=== PATIENT | female | born 1930 | race Caucasian/White ===

== ENCOUNTER 2019-03-26 19:56 | Inpatient (IN) ==
[~2019-03-26 19:56] MED LIST: AMIODARONE HCL INJ 50 MG/ML 3 ML VIAL IV ONE
[2019-03-26] MEDS ORDERED: HEPARIN (PORCINE) 1000 UNIT/ML 10 ML (CATH LAB USE ONLY) ONE (20:02)
[2019-03-26] MEDS ORDERED: NiCARDipine HCL INJ 2.5 MG/ML 10 ML AMP ONE (20:02)
[2019-03-26] MEDS ORDERED: NITROGLYCERIN SL 0.4 MG/TAB TAB ONE (20:03)
[2019-03-26] MEDS ORDERED: fentaNYL citrate 100 MCG/2 ML VIAL ONE (20:03)
[2019-03-26] MEDS ORDERED: MIDAZOLAM HCL 1 MG/ML 2ML VIAL ONE (20:03)
[2019-03-26] MEDS ORDERED: NITROGLYCERIN/D5W 100MCG/ML 20ML SYR ONE (20:03)
[2019-03-26] MEDS ORDERED: ONDANSETRON INJ 2 MG/ML 2 ML VIAL ONE (20:03)
--- NOTE | 2019-03-26 20:11 | XRay Report ---
XR chest 1V portable CLINICAL HISTORY: Atypical chest pain COMPARISON STUDY: No previous studies for comparison. FINDINGS: There is borderline elevation left hemidiaphragm. The heart is at the upper limits of cody l in size. There is no overt failure. There is no lobar consolidation. There are no pleural effusions . There is minor interstitial thickening likely chronic.[ IMPRESSION: No active disease in the chest. Electronically signed by: Zeeshan Cano M.D. 03/26/2019 8:10 PM
[2019-03-26] MEDS ORDERED: METOCLOPRAMIDE HCL INJ 5 MG/ML 2 ML VIAL ONE (20:25)
[2019-03-26 20:26] LABS: iSTAT Creatinine 0.7 mg/dl (0.6-1.3); iSTAT Ionized Calcium 1.19 mmol/l (1.12-1.32); iSTAT Potassium 3.6 mEq/L (3.3-5.0)
[2019-03-26 20:30] LABS: Basophils # (auto) 0.05 K/uL (0-0.2); Basophils % (auto) 0.5 %; Eosinophils # (auto) 0.36 K/uL (0-0.5); Eosinophils % (auto) 3.5 %; Hematocrit (blood only) 49.2 % (37-47); Hemoglobin 16.4 g/dL (12.0-16.0); Immature Granulocytes # (auto) 0.02 K/uL (0.00-0.02); Immature Granulocytes % (auto) 0.2 %; Lymphocytes # (auto) 1.73 K/uL (1.2-3.4); Lymphocytes % (auto) 16.7 %; Mean Corpuscular Hemoglobin 29.9 pg (25-34); Mean Corpuscular Hgb Conc 33.3 g/dL (32-36); Mean Corpuscular Volume 89.6 fL (80-100); Mean Platelet Volume 11.3 fL (7.4-10.4); Monocytes # (auto) 0.58 K/uL (0.11-0.59); Monocytes % (auto) 5.6 %; Neutrophils # (auto) 7.65 K/uL (1.4-6.5); Neutrophils % (auto) 73.5 %; Platelet Count 269 K/uL (130-400); RDW Coefficient of Variation 13.1 % (11.5-14.5); RDW Standard Deviation 43.1 fL (36.4-46.3); Red Blood Count 5.49 M/uL (4.2-5.4); White Blood Count 10.39 K/uL (4.8-10.8)
[2019-03-26] MEDS ORDERED: ATROPINE SULFATE 0.1 MG/ML 10ML SYR IV ONE ×2 (20:41→20:45)
[2019-03-26 20:43] LABS: Partial Thromboplastin Ratio 0.9; Partial Thromboplastin Time 24.6 Seconds (21.0-31.0); Prothrombin Time 10.3 Seconds (9.0-12.0)
[2019-03-26] MEDS ORDERED: NOREPINEPHRINE BITARTRATE 1 MG/ML 4 ML VIAL (CATH LAB USE ONLY) ONE (20:45)
[2019-03-26] MEDS ORDERED: AMIODARONE 360MG / 200ML D5W (CATH LAB USE ONLY) ONE (20:52)
[2019-03-26 20:53] LABS: Alanine Aminotransferase 16 U/L (12-78); Albumin Level 4.3 gm/dl (3.4-5.0); Aspartate Aminotransferase 13 U/L (15-37); BUN Creatinine Ratio 23.3 (10-20); Blood Urea Nitrogen 18 mg/dl (7-18); Calcium 9.5 mg/dl (8.5-10.1); Carbon Dioxide 28 mmol/L (21-32); Chloride 107 mmol/L (98-107); Est GFR (African American) 80.5; Est GFR (Non-African American) 69.4; Glucose 176 mg/dl (70-99); Lipase 74 U/L (73-393); Magnesium 2.1 mg/dl (1.8-2.4); Potassium 3.6 mmol/L (3.5-5.1); Sodium 141 mmol/L (136-145)
[2019-03-26 21:04] LABS: Albumin Globulin Ratio 1.2 (0.9-2); Alkaline Phosphatase 73 U/L (45-117); Bilirubin,Total 0.5 mg/dl (0.2-1); Creatine Kinase 78 U/L (26-192); Creatine Kinase MB 1.9 ng/ml (0.5-3.6); Globulin 3.6 gm/dl (2.5-4.0); Thyroid Stimulating Hormone 0.009 uIu/ml (0.300-4.500); Total Protein 7.9 gm/dl (6.4-8.2); Troponin I < 0.015 ng/ml (0-0.045)
[2019-03-26] MEDS ORDERED: CLOPIDOGREL BISULFATE 300 MG TAB ONE (21:10)
[2019-03-26 21:16] LABS: T4 Free Thyroxine 1.39 ng/dl (0.8-1.6)
--- NOTE | 2019-03-26 21:17 | Post Anesthesia Assessment ---
Date of Service March 26, 2019 Post Sedation Assessment Vital Signs Temp Pulse Resp BP Pulse Ox 03/26/19 20:05 97.5 F L 74 20 131/90 94 03/26/19 20:01 94 Recovery Score Activity: Moves 4 extremities Respiration: Deep Breath/Cough Circulation: +/-20% PreAnes Value Consciousness: Fully Awake Oxygen Saturation: O2 needed for >90% Discharge Sedation Level of Care: Fast Track Phase II Post Sedation Plan On clinical assessment, the patient appears to have tolerated the sedation without complications. Patient is recovering as anticipated. Patient will continue to be monitored by nursing and may be discharged when sedation discharge criteria are met per below protocol. Upon Completions of procedure up to 15 minutes continue every 5 minute vital signs and the P.A.R. score; then discharge to a Phase I or Fast Track to Phase II per the following guidelines: * Discharge Patient to appropriate Phase II area if PAR is 8 or greater or return to pre- procedure baseline. The post - procedure orders will be as directed. * If PAR score is less than 8 or not return to pre-procedure baseline then patient will follow Phase I monitoring till PAR is reached for Phase II. The Phase I may be done in procedure room or may call to secure a Phase I area. * If naloxone or flumazenil are used for reversal, hold in Phase I for continued monitoring from when last reversal dose was given for a minimum of 60 minutes or longer pending the nurse and/or physician discretion of patient condition before discharge to Phase II. Please call the Sedation Physician to re-evaluate and complete post-note for discharge to Phase II area. Do NOT discharge from procedure sedation or Phase 1 until post- sedation evaluation note is complete by procedure /sedation MD Sedation Discharge Instructions to be given to the patient at discharge to home.
--- NOTE | 2019-03-26 21:17 | Pre Anesthesia Assessment ---
Date of Service March 26, 2019 Pre Sedation Assessment Vital Signs Temp Pulse Resp BP Pulse Ox 03/26/19 20:05 97.5 F L 74 20 131/90 94 03/26/19 20:01 94 Cardiovascular RRR, no murmur, no edema Respiratory normal respiratory effort, lungs clear to auscultation Pre-Sedation Airway Assessment Smoking Status: Current some day smoker Hx Sleep Apnea: No Hx Difficult Intubation: No Short, Thick Neck: No Thyromental Distance: > or= 3.5 Finger Breadths Oral Cavity: + WNL Mallampati Class: III ASA: ASA4 Procedure Planning Contraindications for Sedation: none Current Medications Reviewed: Yes Notes The planned sedation has been discussed with the patient. Informed Consent was obtained. I have identified the patient, determined the appropriateness of sedation and have assessed the patient immediately prior to the procedure. All medicine(s) and interventions are by my order.
[2019-03-26] MEDS ORDERED: ICU PROTOCOL FOR HYPERGLYCEMIA PRN (21:22)
[2019-03-26] MEDS ORDERED: ACETAMINOPHEN 325 MG TAB PO PRN (21:25)
[2019-03-26] MEDS ORDERED: NITROGLYCERIN SL 0.4 MG/TAB TAB SL PRN (21:25)
[2019-03-26] MEDS ORDERED: ONDANSETRON HCL 8 MG in DEXTROSE 5% 50 ML IV PRN (21:25)
[2019-03-26] MEDS ORDERED: SODIUM CHLORIDE 0.9% 1000ML 1,000 ML IV SCH (21:30)
[2019-03-26] MEDS ORDERED: AMIODARONE / D5W 360 MG/200 ML BAG IV STA (21:41)
[2019-03-26] MEDS ORDERED: NOREPINEPHRINE BIT INJ 8 MG in DEXTROSE 5% 500 ML IV PRN (21:41)
--- NOTE | 2019-03-26 21:51 | Cardiology Consultation ---
Date of Consultation March 26, 2019 Assessment & Plan (1) STEMI (ST elevation myocardial infarction): Presentation consistent with lateral STEMI and recommend proceeding with emergent cardiac catheterization and likely primary PCI. No apparent contraindications to procedure. Discussed risks, benefits, alternatives of procedure with patient and they are willing to proceed. Further recommendations pending findings of coronary angiography. History of Present Illness Attending Physician: Reginald Jennings MD History of Present Illness 88-year-old woman here with acute chest pain and ECG concerning for acute OK. Patient seen emergently in the ED after heart alert activated in route by EMS. No prior cardiac history. Cardiac risk factors include hypertension, ongoing tobacco use. Other medical issues include dementia, frailty, unintentional weight loss. Patient is a difficult historian but reports right-sided chest discomfort beginning this evening. Associated with nausea and vomiting. Denies similar symptoms in the past. Hemodynamically stable on arrival. EKG showed lateral ST elevations with anterior ST depressions. Allergies Allergy/AdvReac Type Severity Reaction Status Date / Time NSAIDS (Non-Steroidal Allergy CROHNS DX Unverified 03/26/19 21:47 Anti-Inflamma Home Medications Home Medications Medication Instructions Recorded Confirmed Type Mesalamine (Asacol *) 400 mg PO TID #0 03/07/09 History Azathioprine (Imuran) 50 mg PO TID #0 tab 10/28/12 History Ergocalciferol (Vitamin D Cap) 50,000 inter.unit PO WK #0 cap 10/28/12 History NICOTINE (NICOTROL INHALER) 10 mg INHALATION DAILY/UD #0 10/28/12 History ASPIRIN (ASPIR-81) 81 mg PO DAILY #0 12/14/12 History FELODIPINE (PLENDIL ER) 2.5 mg PO DAILY #0 tab 12/14/12 History FLUTICASONE PROPIONATE (FLONASE 2 spry [place] DAILY #0 btl 12/14/12 History NASAL SPRAY) MULTIPLE MINERALS W/ VITAMINS 1 cap PO DAILY #0 12/14/12 History (CITRACAL PLUS) OLOPATADINE HYDROCHLORIDE (PATADAY) 1 drp OPB DAILY PRN #0 12/14/12 History OMEPRAZOLE (PRILOSEC) 20 mg PO DAILY #0 cap 12/14/12 History OXYBUTYNIN CHLORIDE (OXYBUTYNIN 15 mg PO DAILY #0 12/14/12 History CHLORIDE ER) VIT W/ FERROUS FUMARA 1 tab PO DAILY #0 12/14/12 History () Patient History Social History Preferred Language: Mexican Feels Safe at Home: Yes Smoking Status: Current some day smoker Review of Systems Review of Systems: All systems reviewed & are unremarkable except as noted in HPI & below Physical Exam Physical Exam: General: Comfortable, thin, frail, no acute distress HEENT: Sclerae anicteric, mucous membranes moist Lungs: Clear to auscultation bilaterally Cardiac: Regular rate and rhythm, no murmurs. Abdomen: Soft, nontender, nondistended, positive bowel sounds. Extremities: Warm, well perfused, no edema. 2+ radial pulses Skin: No rashes or lesions. Neuro: Nonfocal Psych: Alert and oriented to person, place Results & Data Vital Signs (Past 12 Hours) Vital Signs Temp Pulse Resp BP Pulse Ox 03/26/19 20:05 97.5 F L 74 20 131/90 94 03/26/19 20:01 94 PG Care Time/CCT Total # of Minutes Spent Total Time Spent with Patient: Total time spent is greater than 50% in coordination of care (as documented) at patient's floor/unit and/or counseling patient:
--- NOTE | 2019-03-26 21:52 | History & Physical Report ---
Date of Service March 26, 2019 Assessment & Plan (1) STEMI (ST elevation myocardial infarction): No prior h/o heart disease. Taken to cath and received 2 HONEY. Currently in ICU on amio after VT requiring shocks during catheterization. Also requiring norepi with some intermittent hypotension. Loaded with Plavix and ordered to receive Lipitor, ASA 81, Plavix 75 daily. Cardiology consulted. Current management per [employer]. (2) Senile dementia: Recently administered shocks and has had a very eventful night. She is oriented but having some trouble remebering details like why she came in. Expect this to improve with time away from the event. Holding Razadyne until medication list can be confirmed. (3) Tobacco use disorder: Pt denies smoking. (4) Crohn disease: Per records she is not on medication for this, however, will need to confirm in am when able to get ahold of family. (5) DVT prophylaxis: SCDs Full Code Dispo-pending recovery, currently in ICU as she is needing pressor support. Janice Cook DO [facility] Hospitalist History of Present Illness Chief Complaint: STEMI Primary Care Provider: NO PCP The patient is an 88-year-old female here with acute chest pain and evidence of acute MO on EKG. A heart alert was activated and she was taken to cath where she was found to have an occluded mid circumflex and received 2 stents. She b ecame intermittently hypotensive and is now on norepinephrine and in the ICU for monitoring. During catheterization she also revealed went into unstable V. tach and required 2 shocks to return to sinus rhythm. She was loaded with Plavix and placed in the ICU for recovery and further monitoring. She has no prior history of cardiac disease per records. Cardiac risk factors include hypertension and tobacco use. She is unable to give me a history of what happened this evening and is having difficulty with short term memory. She is oriented that she is in the hospital, however, and knows her PCP well. She denies use of a ncotrol inhaler, which was on her medication list, however, not on her recent outpatient list. There is concern for two charts being made on her and I am unable to veri fy her outpatient medications either with her or her family as she has no listed contacts. There is a recent office note, however, that lists her active medications. Celexa is being held as this was a new medication for her per the notes, which she may not be taking regularly. She is denying chest pain, shortness of breath or other symptoms at this time. Allergies Allergy/AdvReac Type Severity Reaction Status Date / Time NSAIDS (Non-Steroidal Allergy CROHNS DX Unverified 03/26/19 21:47 Anti-Inflamma Home Medications Home Medications Medication Instructions Recorded Confirmed Type Ergocalciferol (Vitamin D Cap) 50,000 inter.unit PO WK #0 cap 10/28/12 History cholecalciferol (vitamin D3) 2,000 unit PO DAILY 03/26/19 03/26/19 History citalopram 10 mg PO DAILY 03/26/19 03/26/19 History galantamine 16 mg PO Q24H 03/26/19 03/26/19 History Past Med/Surg History Medical History Chronic rhinitis Crohn disease Generalized anxiety disorder Lumbar spinal stenosis MGUS (monoclonal gammopathy of unknown significance) Osteoporosis Patient unable to provide medical history 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, bilateral Tobacco use disorder Surgical History (Updated 03/26/19 @ 22:55 by Janice Cook DO) S/P laparoscopic cholecystectomy 10/2012 Family History Other Family history non-contributory Social History Preferred Language: Cambodian Feels Safe at Home: Yes Smoking Status: Current some day smoker Review of Systems Review of Systems: Unobtainable due to cognitive status Physical Exam Physical Exam: CONSTITUTIONAL: WNWD, vitals as above, generally well- appearing EYES: pupils are equal bilaterally, normal conjunctivae, no scleral icterus ENT: external ear and nose normal, MMM RESPIRATORY: clear to auscultation bilaterally, no crackles, rales or wheezes, normal respiratory effort CARDIOVASCULAR: regular rate and rhythm, S1 and 2 heard without murmurs, gallops or rubs, no JVD, no peripheral edema GASTROINTESTINAL: normal bowel sounds, soft, nontender, nondistended MUSCULOSKELETAL: strength 5/5 throughout, head is normocephalic and atraumatic SKIN: warm and dry NEUROLOGIC: CN 2-12 grossly intact, no sensory deficit, normal cognition, normal speech,difficulty with short-term memory of recent events. Cannot recall medications she is taking. Results & Data Vital Signs (Past 12 Hours) Vital Signs Temp Pulse Resp BP Pulse Ox 03/26/19 20:05 36.4 C L 74 20 131/90 94 03/26/19 20:01 94 Laboratory Results Short CBC 03/26/19 Range/Units 19:45 WBC 10.39 (4.8-10.8) K/uL Hgb 16.4 H (12.0-16.0) g/dL Hct 49.2 H (37-47) % Plt Count 269 (130-400) K/uL BMP 03/26/19 19:45 Sodium 141 Potassium 3.6 Chloride 107 Carbon Dioxide 28 BUN 18 Creatinine 0.77 Glucose 176 H Calcium 9.5 Cardiac Enzymes 03/26/19 Range/Units 19:45 Total Creatine Kinase 78 (26-192) U/L CK-MB (CK-2) 1.9 (0.5-3.6) ng/ml Troponin I < 0.015 (0-0.045) ng/ml Liver Function 03/26/19 Range/Units 19:45 Total Bilirubin 0.5 (0.2-1) mg/dl AST 13 L (15-37) U/L ALT 16 (12-78) U/L Alkaline Phosphatase 73 (45-117) U/L Albumin 4.3 (3.4-5.0) gm/dl Diagnostic Findings XR chest 1V portable CLINICAL HISTORY: Atypical chest pain COMPARISON STUDY: No previous studies for comparison. FINDINGS: There is borderline elevation left hemidiaphragm. The heart is at the upper limits of normal in size. There is no overt failure. There is no lobar consolidation. There are no pleural effusions. There is minor interstitial thickening likely chronic.[ IMPRESSION: No active disease in the chest. Code Status & VTE Plan VTE Prophylaxis Plan VTE Prophylaxis will be ordered: Yes
--- NOTE | 2019-03-26 22:04 | Cardiac Catheterization ---
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 Cardiac Status Clinical evaluation leading to the procedure CAD Presenation: STEMI Anginal Classification: CCS IV Heart Failure: No Cardiogenic Shock within 24 Hours: No Cardiac Arrest within 24 Hours: No Imaging Studies Past 6 Months: No Stress Studies Past 6 Months: No Diagnostic Physicians Name: Reginald Jennings MD Closure Device Percutaneous Entry Location: Radial Closure Device: Radial Band Recommendations: PCI without planned CABG PCI Indication: Immediate PCI for STEMI First Noted: First EKG Lesion Segment Name: mid circumflex Culprit Artery: Yes Stenosis Prior to Rx (%): 100 Chronic Total Occlusion: No IVUS: No FFR: No Pre-Procedure MARK Flow: 0 Previously Treated Lesion: No Lesion Complexity: Non-High/Non-C Lesion Length (mm): 22 Thrombus Present: Yes Bifurcation Lesion: Yes Guidewire Across Lesion: Stenosis Post-Procedure (%): 0 Post-Procedure MARK Flow: 3 Devices(s) Deployed: Yes Yes Intraprocedure Events Significant Disection: No Perforation: No Cardiac Cath Procedure Full Procedure Date March 26, 2019 Pre-Procedure Diagnosis Pre-Procedure Diagnosis: STEMI AUC Score AUC Score: 9 Post-Procedure Diagnosis Post-Procedure Diagnosis: Severe CAD, Successful PCI and Normal Intracardiac Pressures Procedure(s) Performed Procedure(s) Performed: Coronary Angiography, Left Heart Cath, Drug Eluting Stent and Defibrillation Efficiency Analyst Reginald Jennings MD Plant Mechanic(s) Wood Estimated Blood Loss Estimated Blood Loss: 10 Medication(s) Medication(s): Atropine, Clopidogrel, Fentanyl, Heparin, Lidocaine 1%, Nicardipine, Nitroglycerin, Norepinephrine and Versed Medication(s): amiodarone Summary of Findings Indication: STEMI/Heart Alert Access: 6 Fr right radial artery Catheters: [place], EBU 3.5 guide, pigtail Findings: LM -large caliber, mildly calcified, luminal irregularities LAD -medium caliber vessel, mildly calcified proximally, 20 to 30% mid segment disease, distal luminal irregularities as wraps around apex. Medium first diagonal with 40 to 50% ostial disease Circumflex -large caliber vessel, 100% acute mid segment occlusion. RCA -medium caliber, dominant, mildly calcified, 20 to 30% proximal and mid segment disease, distal luminal irregularities. LVEDP -10 -- PCI -- Antithrombotic therapy: Heparin, clopidogrel Procedure: Left main cannulated with EBU 3.5 guide Curriculum Writer 50 wire passed across lesion into first OM Whisper wire passed across lesion into terminal PLB Mid RCA lesion predilated with 2.5 compliant balloon With reperfusion at bradycardia requiring atropine Later developed unstable VT requiring defibrillation x2 and initiation of amiodarone Intermittently hypotensive requiring IV fluid bolus and low-dose norepinephrine Dilated lesion stented with 2.75 x 22 mm [place] extending into distal segment Second drug-eluting stent (3.0 x 15 mm Nicolas) placed more proximally overlapping with proximal aspect of initial stent Stent post-dilated with stent balloon IC vasodilators administered for spasm Post procedure MARK 3 flow, stent well expanded with minimal residual stenosis and no apparent cardiac complications. Very distal OM1 appeared occluded secondary to thrombus. Arterial Closure: TR band Summary: 1. Lateral STEMI/acute 100% mid circumflex occlusion 2. Mild multi-vessel non-culprit coronary artery disease 3. Normal intracardiac filling pressure 4. Unstable VT requiring defibrillation x 2 and amiodarone 5. Cardiogenic shock requiring IV fluids, norepinephrine, atropine. 6. Successful PCI of mid to distal circumflex with 2 overlapping drug-eluting stents (3.0 x 15, 2.75 x 22 mm [place]). Recommendations: Admit to ICU for continued monitoring Loaded with clopidogrel 600 mg in cath Continue dual-antiplatelet therapy for at least 1 year. Trend troponins until peak, Check Echo Wean off norepinephrine as able, start beta-kathy. Continue amiodarone overnight High-dose statin Consult cardiac Rehab Hemodynamics Rest Ao:: 132/70/130 Final Ao: 81/47/60 LV: 76/10 Recommendations Recommendations: PCI without planned CABG Specimens Specimens: None Radiation Exposure (mGy) 900 Contrast (mls) 80 Fluids (cc crystalloids) Fluids (cc crystalloids): 550 Drains Drains: none Anesthesia moderate Procedural Complication(s) None Disposition ICU I attest to the content of the Intraoperative Record and any orders documented therein. Any exceptions are noted below. PG Care Time/CCT Total # of Minutes Spent Total Time Spent with Patient: Total time spent is greater than 50% in coordination of care (as documented) at patient's floor/unit and/or counseling patient:
--- NOTE | 2019-03-26 23:15 | Critical Care Consultation ---
Date of Consultation March 26, 2019 Assessment & Plan (1) STEMI (ST elevation myocardial infarction): Reason Critically Ill: 88-year-old female appearance looks to the ICU following heart catheterization for ST elevation myocardial infarction with HONEY x2 placed to the mid circumflex Neuro - Senile dementiapatient reportedly is mildly confused at baseline, lives at home with who is also demented. Son is POA currently at home with the patient's . -We will consult social work and PT OT Cardiac - STEMIpatient had ST elevation in lateral leads, initial troponin negative -Patient now status post heart catheterization with successful placement of HONEY x2 to the mid circumflex artery -Patient had episode of V. tach and bradycardia during heart cath and received defibrillation x2 and atropine, was also placed on levo fed drip but is now weaned off -Given 600 mg clopidogrel bolus post-cath -We will trend troponins for peak -Follow-up cardiac echo -Follow-up LFTs, TSH, hemoglobin A1c -Patient started on ASA, Plavix, atorvastatin -Continuous monitoring on telemetry V. tachpatient experienced 2 episodes during heart catheterization of unstable V. tach and required defibrillation -Was bolused with amnio during catheterization placed on amiodarone following -She continues to have many PVCs and frequent nonsustained runs of V. tach, likely contributed to reperfusion -We will continue amiodarone infusion -We will maximize electrolytes -Continue monitoring on telemetry Respiratory - History of tobacco abuse, currently maintaining sats on room air, will continue to monitor with continuous oxygen saturation probe GI - Heart healthy diet RENAL/LYTES - Creatinine stable, maximize electrolytes for potassium greater than 4 and mag greater than 2 - Strict I's and O's ENDO - No history DM or thyroid disease ICU hyperglycemic protocol Follow-up TSH, T4 HEME - H&H stable, monitor routine CBC ID - No indication for infectious process at this time LINES/IV ACCESS - Peripheral IVs DVT PROPHYLAXIS - SCDs, heparin I have personally spent 37 minutes of critical care time in the direct management of this patient. This is a life/limb threatening event. This includes time spent evaluating patient, direct bedside care, chart review, placing orders, interpretation of diagnostic studies, discussion with consultants, patient, and family members, as well as other required patient management activities. This time is exclusive of all separately billable procedures, and teaching time and separate from and in addition to any other critical care service time. Thank you for allowing us to participate in the care of this patient. Please refer to my attending physician's documentation for any further recommendations. (2) Tobacco use disorder: (3) Senile dementia: (4) Generalized anxiety disorder: History of Present Illness Attending Physician: Brett Bills MD History of Present Illness Patient is a 88-year-old female presents to the emergency department complaints of right-sided chest discomfort beginning around 1700 today with radiation to the right arm she rated 9 out of 10. She was given 3 of nitro and fentanyl in the field by EMS without relief. And EKG showed lateral ST elevations with anterior ST depression. Heart alert was activated and patient was taken for heart catheterization. 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 During the heart cath patient experienced unstable VT requiring defibrillation x2 and was given amiodarone had an episode of bradycardia requiring atropine and levo fed. Patient was loaded with clopidogrel 600 mg and placed on amiodarone drip. She was then transferred to ICU post cath. On arrival to the ICU the patient is confused but alert. She denies chest pain, palpitations, syncope, dizziness, shortness of breath, nausea or vomiting, or abdominal pain. Patient continues to experience high frequency of ectopy on monitor with many PVCs and frequent runs of nonsustained VT. Will keep in ICU overnight for close monitoring and management following STEMI with stent placement. Allergies Allergy/AdvReac Type Severity Reaction Status Date / Time NSAIDS (Non-Steroidal Allergy CROHNS DX Unverified 03/26/19 21:47 Anti-Inflamma Home Medications Home Medications Medication Instructions Recorded Confirmed Type Ergocalciferol (Vitamin D Cap) 50,000 inter.unit PO WK #0 cap 10/28/12 History cholecalciferol (vitamin D3) 2,000 unit PO DAILY 03/26/19 03/26/19 History citalopram 10 mg PO DAILY 03/26/19 03/26/19 History galantamine 16 mg PO Q24H 03/26/19 03/26/19 History Patient History Medical History Chronic rhinitis Crohn disease Generalized anxiety disorder Lumbar spinal stenosis MGUS (monoclonal gammopathy of unknown significance) Osteoporosis Patient unable to provide medical history 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, bilateral Tobacco use disorder Surgical History (Updated 03/26/19 @ 22:55 by Janice Cook DO) S/P laparoscopic cholecystectomy 10/2012 Family History Other Family history non-contributory Social History Preferred Language: Danish Communication Ability: Effective Cold Saw Operator Required: No Beliefs That Will Affect Care: None Current Living Situation: Spouse Other Information That Helps Us Care for You: No Feels Safe at Home: Yes Safety Concerns: Feels Safe At This Time Smoking Status: Former smoker Hx Alcohol Use: Yes Hx Substance Use: No Review of Systems Review of Systems: All systems reviewed & are unremarkable except as noted in HPI & below Physical Exam Eyes: PERRL, conjunctivae normal, anicteric sclerae ENMT: external ear and nose normal, oropharynx normal Neck: trachea midline, no thyromegaly Respiratory: normal respiratory effort, lungs clear to auscultation Cardiovascular: Rate/Rhythm: regular rate and regular rhythm Heart Sounds: normal S1 and normal S2; no murmur Vessels: no JVD Extremities: normal capillary refill Multiple PVCs and nonsustained V. tach on monitor Gastrointestinal (Abdomen): normal bowel sounds, soft, nontender, no hepatosplenomegaly Musculoskeletal: no cyanosis or clubbing, extremities motor strength 5/5 Skin: no rashes, warm and dry Neurologic: PERRL, EOMI, accommodation nl, no face palsy, no dysarthria Psychiatric: Orientation: alert, oriented to person and cooperative; + not oriented to place and + not oriented to time Eye Contact: good eye contact Results & Data Vital Signs (Past 12 Hours) Vital Signs Temp Pulse Pulse Resp BP BP Pulse Ox 03/26/19 23:01 79 20 109/58 L 94 03/26/19 23:00 79 16 96 03/26/19 22:31 83 17 99 03/26/19 22:30 82 16 107/69 99 03/26/19 22:28 36.5 C 03/26/19 22:17 80 97 03/26/19 22:15 86 105/63 03/26/19 22:01 87 93 03/26/19 22:00 89 117/68 96 03/26/19 21:54 94 H 108/64 88 L 03/26/19 21:52 113 H 03/26/19 21:50 36.5 C 86 18 117/68 97 03/26/19 20:05 36.4 C L 74 20 131/90 94 03/26/19 20:01 94 Coding Level of Care Code Critical Care 1st 30-74 mins Diagnoses STEMI (ST elevation myocardial infarction) I21.3 Tobacco use disorder F17.200 Senile dementia F03.90 Generalized anxiety disorder F41.1
--- NOTE | 2019-03-26 23:18 | Emergency Department Note ---
Entered by Jacqueline Mckenna acting as a scribe for History of Present Illness General Chief complaint: Heart Alert Stated complaint: HEART ALERT Source: patient Mode of arrival: EMS History of Present Illness Onset (ago): hour(s) (1700 today) Location: chest Radiation: other (right side of chest) Pain Consistency: + other (sudden) Current Pain Intensity: 9 Quality: + other (chest pain) Relieved By: not by medication (Nitroglycerin, Fentanyl) Associated symptoms: + chest pain; no shortness of breath and no other (abdomin al pain) Treatments prior to arrival: other (Nitroglycerin, Fentanyl) The patient is a 87 year old female presenting to the Emergency Department via EMS complaining of sudden chest pain starting at 1700 today. EMS reports that the patient is complaining of chest pain which is radiating to her right arm. They state that the patient explained that her pain onset when she was sitting down in her home. They note that the patient seems confused and wasnt able to a nswer all of their questions. They add that the patient received 3 Nitroglycerin and Fentanyl SENIOR RUBY DEVELOPER. The patient reports that she is experiencing chest pain that radiates to the right side of her chest. She currently rates this pain 910. She states that the medicine she received SENIOR RUBY DEVELOPER did not help her pain. The patient denies abdominal pain, shortness of breath and history of [place], DM, HTN, HLD. Home Medications Home Medications Medication Instructions Recorded Confirmed Type Ergocalciferol (Vitamin D Cap) 50,000 inter.unit PO WK #0 cap 10/28/12 History cholecalciferol (vitamin D3) 2,000 unit PO DAILY 03/26/19 03/26/19 History citalopram 10 mg PO DAILY 03/26/19 03/26/19 History galantamine 16 mg PO Q24H 03/26/19 03/26/19 History Allergies Allergy/AdvReac Type Severity Reaction Status Date / Time NSAIDS (Non-Steroidal Allergy CROHNS DX Unverified 03/26/19 21:47 Anti-Inflamma Past Med/Surg History Medical History Chronic rhinitis Crohn disease Generalized anxiety disorder Lumbar spinal stenosis MGUS (monoclonal gammopathy of unknown significance) Osteoporosis Patient unable to provide medical history 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, bilateral Tobacco use disorder Surgical History (Updated 03/26/19 @ 22:55 by Janice Cook DO) S/P laparoscopic cholecystectomy 10/2012 Family History Other Family history non-contributory Social History Preferred Language: Serbian Communication Ability: Effective Maintenance Leader Required: No Beliefs That Will Affect Care: None Current Living Situation: Spouse Other Information That Helps Us Care for You: No Feels Safe at Home: Yes Safety Concerns: Feels Safe At This Time Smoking Status: Former smoker Hx Alcohol Use: Yes Hx Substance Use: No Review of Systems See HPI for pertinent positives & negatives. and A total of 10 systems reviewed and were otherwise negative Physical Exam Vital Signs Vital Signs - 24 hr 03/26/19 20:01 03/26/19 20:05 Temperature 36.4 C L Temperature Source Oral Pulse Rate 74 Respiratory Rate 20 Respiratory Effort / Characteristics Non-Labored Spontaneous Respiratory Depth Normal Respiratory Pattern Regular Blood Pressure 131/90 Blood Pressure Mean 103 Blood Pressure Position Lying Pulse Oximetry 94 94 Oxygen Delivery Method Room Air Room Air Sepsis Recent Fever Within 48 Hours No Sepsis Action Taken by Nursing No Action Required GENERAL: Patient is sitting up in bed, wearing hospital gown. Ill appearing. Disheveled. EYE EXAM: normal conjunctiva. OROPHARYNX: no exudate, no erythema, lips, buccal mucosa, and tongue normal and mucous membranes are moist NECK: supple, no nuchal rigidity, no adenopathy, non-tender LUNGS: Clear to auscultation. Normal chest wall mechanics HEART: no murmurs, S1 normal and S2 normal ABDOMEN: abdomen soft, non-tender, normo-active bowel sounds, no masses, no rebo und or guarding. BACK: Back is symmetrical on inspection and there is no deformity, no midline tenderness, no CVA tenderness. SKIN: no rashes and no bruising UPPER EXTREMITIES: upper extremities are grossly normal. LOWER EXTREMITIES: No pitting edema. NEURO EXAM: Oriented to person and place. Following commands. No focal deficit. Course Course ED COURSE: Vital signs were reviewed and showed hypertension. The patients medical record was reviewed The above diagnostic studies were performed and reviewed. ED treatments and interventions as stated above. 1956: The patient was evaluated in room A1. A complete history and physical examination was performed. 2000: FAST exam performed at this time. 2007: I discussed the patients case with Dr. Jennings Auditor/Quality who is at the patients bedside. He will evaluate the patient for further management. 2012: Upon reevaluation, I discussed my findings with the patient and she understands and agrees with the treatment plan. 2013: Dr. Jennings took the patient to the catheterization lab at this time. Based on the patients age, coexisting illnesses, exam and lab findings the decision to treat as an inpatient was made. The patient remained stable while under my care. The patient will be evaluated for further management. Administered Medications Amiodarone HCl/Dextrose (Nexterone / D5w) 360 mg in 200 mls @ 33.333 mls/hr IV .Q6H STA Stop: 03/27/19 03:40 Last Admin: 03/26/19 23:10 Dose: Not Given Documented by: [id number] Discontinued Medications Amiodarone HCl/Dextrose (Nexterone / D5w (Aluminum Siding Mechanic Use Only)) Confirm Administered Dose 360 mg .ROUTE .STK-MED ONE Stop: 03/26/19 20:53 Last Admin: 03/26/19 23:09 Dose: Not Given Documented by: [id number] Atropine Sulfate (Atropine Sulfate) Confirm Administered Dose 1 mg IV .STK-MED O NE Stop: 03/26/19 20:42 Last Admin: 03/26/19 23:09 Dose: Not Given Documented by: [id number] Atropine Sulfate (Atropine Sulfate) Confirm Administered Dose 1 mg IV .STK-MED ONE Stop: 03/26/19 20:46 Last Admin: 03/26/19 23:09 Dose: Not Given Documented by: [id number] Clopidogrel Bisulfate (Plavix) Confirm Administered Dose 600 mg .ROUTE .STK-MED ONE Stop: 03/26/19 21:11 Last Admin: 03/26/19 23:09 Dose: Not Given Documented by: [id number] Fentanyl Citrate (Fentanyl Citrate) Confirm Administered Dose 100 mcg .ROUTE .STK-MED ONE Stop: 03/26/19 20:04 Last Admin: 03/26/19 23:07 Dose: Not Given Documented by: [id number] Heparin Sodium (Porcine) (Heparin Iv Bolus (Aluminum Siding Mechanic Use Only)) Confirm Administered Dose 10,000 units .ROUTE .STK-MED ONE Stop: 03/26/19 20:03 Last Admin: 03/26/19 23:07 Dose: Not Given Documented by: [id number] Heparin Sodium/Sodium Chloride (Heparin/Nss 1000 Unit/500ml Flush Bag) Confirm Administered Dose 3,000 units IV .STK-MED ONE Stop: 03/26/19 20:04 Last Admin: 03/26/19 23:08 Dose: Not Given Documented by: [id number] Sodium Chloride (Nss 1000ml) 1,000 mls @ 999 mls/hr IV .Q1H1M [place] Stop: 03/26/19 22:30 Last Admin: 03/26/19 23:10 Dose: Not Given Documented by: [id number] Metoclopramide HCl (Reglan) Confirm Administered Dose 10 mg .ROUTE .STK-MED ONE Stop: 03/26/19 20:26 Last Admin: 03/26/19 23:09 Dose: Not Given Documented by: [id number] Midazolam HCl (Versed) Confirm Administered Dose 2 mg .ROUTE .STK-MED ONE Stop: 03/26/19 20:04 Last Admin: 03/26/19 23:09 Dose: Not Given Documented by: [id number] Nicardipine HCl (Cardene) Confirm Administered Dose 25 mg .ROUTE .STK-MED ONE Stop: 03/26/19 20:03 Last Admin: 03/26/19 23:07 Dose: Not Given Documented by: [id number] Nitroglycerin (Nitrostat) Confirm Administered Dose 1.2 mg .ROUTE .STK-MED ONE Stop: 03/26/19 20:04 Last Admin: 03/26/19 20:05 Dose: 0.4 mg Documented by: [id number] Nitroglycerin/Dextrose (Nitroglycerin/D5w 100 Mcg/Ml 20ml Syringe) Confirm Administered Dose 2,000 mcg .ROUTE .STK-MED ONE Stop: 03/26/19 20:04 Last Admin: 03/26/19 23:08 Dose: Not Given Documented by: [id number] Norepinephrine Bitartrate (Levophed (Aluminum Siding Mechanic Use Only)) Confirm Administered Dose 4 mg .ROUTE .STK-MED ONE Stop: 03/26/19 20:46 Last Admin: 03/26/19 23:09 Dose: Not Given Documented by: [id number] Ondansetron HCl (Zofran) Confirm Administered Dose 4 mg .ROUTE .STK-MED ONE Stop: 03/26/19 20:04 Last Admin: 03/26/19 20:05 Dose: 4 mg Documented by: [id number] Critical Care Time Critical Care Time: Yes Total Critical Care Time: 32 I have personally spent 32 minutes of critical care time in the direct management of this patient. This includes bedside care, interpretation of d iagnostic studies, and testing, discussion with consultants, patient, and family members, and other required patient management activities. This 32 minutes is in excess of all separately billable procedures. Medical Decision Making Differential Diagnosis Differential diagnoses includes but is not limited to acute coronary syndrome, myocardial infarction, pericarditis, pulmonary embolus, aortic dissection, pneumonia, pneumothorax, musculoskeletal, shingles, esophageal. Medical Records Attestation: I reviewed the patient's medical records. Home Medications Current Medication List: was personally reviewed by me Laboratory Data Attestation: I reviewed the patient's lab results. Result diagrams: 03/26/19 19:45 03/26/19 19:45 Lab Results 03/26/19 03/26/19 03/26/19 Range/Units 19:45 19:45 19:45 WBC 10.39 (4.8-10.8) K/uL RBC 5.49 H (4.2-5.4) M/uL Hgb 16.4 H (12.0-16.0) g/dL POC Hgb (12.0-16.0) g/dl Hct 49.2 H (37-47) % POC Hct (37-47) % MCV 89.6 (80-100) fL MCH 29.9 (25-34) pg MCHC 33.3 (32-36) g/dL RDW Std Deviation 43.1 (36.4-46.3) fL RDW Coeff of Mohit 13.1 (11.5-14.5) % Plt Count 269 (130-400) K/uL MPV 11.3 H (7.4-10.4) fL Immature Gran % (Auto) 0.2 % Neut % (Auto) 73.5 % Lymph % (Auto) 16.7 % [place] % (Auto) 5.6 % Eos % (Auto) 3.5 % Baso % (Auto) 0.5 % Immature Gran # (Auto) 0.02 (0.00-0.02) K/uL Neut # (Auto) 7.65 H (1.4-6.5) K/uL Lymph # (Auto) 1.73 (1.2-3.4) K/uL [place] # (Auto) 0.58 (0.11-0.59) K/uL Eos # (Auto) 0.36 (0-0.5) K/uL Baso # (Auto) 0.05 (0-0.2) K/uL PT 10.3 (9.0-12.0) Seconds INR 1.0 (0.9-1.1) APTT 24.6 (21.0-31.0) Seconds PTT Ratio 0.9 POC Sodium (135-144) mEq/L Sodium 141 (136-145) mmol/L POC Potassium (3.3-5.0) mEq/L Potassium 3.6 (3.5-5.1) mmol/L POC Chloride (101-112) mEq/L Chloride 107 (98-107) mmol/L Carbon Dioxide 28 (21-32) mmol/L POC Total CO2 (24-31) mEq/l Anion Gap 6.0 (3-11) POC Anion Gap (16-25) mmol/L POC BUN (7-18) mg/dl BUN 18 (7-18) mg/dl Creatinine 0.77 (0.6-1.2) mg/dl POC Creatinine (0.6-1.3) mg/dl Est Cr Clr Drug Dosing Not Reportable Est GFR ( Amer) 80.5 Est GFR (Non-Af Amer) 69.4 BUN/Creatinine Ratio 23.3 H (10-20) Glucose 176 H (70-99) mg/dl POC Glucose (other) (70-99) mg/dl Calcium 9.5 (8.5-10.1) mg/dl POC Ioniz Calcium Geraldo (1.12-1.32) mmol/l Magnesium 2.1 (1.8-2.4) mg/dl Total Bilirubin 0.5 (0.2-1) mg/dl AST 13 L (15-37) U/L ALT 16 (12-78) U/L Alkaline Phosphatase 73 (45-117) U/L Total Creatine Kinase 78 (26-192) U/L CK-MB (CK-2) 1.9 (0.5-3.6) ng/ml CK/CKMB % Calc 2.4 (0-3.0) POC Troponin I (0-0.045) ng/ml Troponin I < 0.015 (0-0.045) ng/ml Total Protein 7.9 (6.4-8.2) gm/dl Albumin 4.3 (3.4-5.0) gm/dl Globulin 3.6 (2.5-4.0) gm/dl Albumin/Globulin Ratio 1.2 (0.9-2) Lipase 74 (73-393) U/L TSH 0.009 L (0.300-4.500) uIu/ml Free T4 1.39 (0.8-1.6) ng/dl 03/26/19 03/26/19 Range/Units 20:11 20:14 WBC (4.8-10.8) K/uL RBC (4.2-5.4) M/uL Hgb (12.0-16.0) g/dL POC Hgb 17.0 H (12.0-16.0) g/dl Hct (37-47) % POC Hct 50 H (37-47) % MCV (80-100) fL MCH (25-34) pg MCHC (32-36) g/dL RDW Std Deviation (36.4-46.3) fL RDW Coeff of Mohit (11.5-14.5) % Plt Count (130-400) K/uL MPV (7.4-10.4) fL Immature Gran % (Auto) % Neut % (Auto) % Lymph % (Auto) % [place] % (Auto) % Eos % (Auto) % Baso % (Auto) % Immature Gran # (Auto) (0.00-0.02) K/uL Neut # (Auto) (1.4-6.5) K/uL Lymph # (Auto) (1.2-3.4) K/uL [place] # (Auto) (0.11-0.59) K/uL Eos # (Auto) (0-0.5) K/uL Baso # (Auto) (0-0.2) K/uL PT (9.0-12.0) Seconds INR (0.9-1.1) APTT (21.0-31.0) Seconds PTT Ratio POC Sodium 143 (135-144) mEq/L Sodium (136-145) mmol/L POC Potassium 3.6 (3.3-5.0) mEq/L Potassium (3.5-5.1) mmol/L POC Chloride 105 (101-112) mEq/L Chloride (98-107) mmol/L Carbon Dioxide (21-32) mmol/L POC Total CO2 27 (24-31) mEq/l Anion Gap (3-11) POC Anion Gap 14.0 L (16-25) mmol/L POC BUN 19 H (7-18) mg/dl BUN (7-18) mg/dl Creatinine (0.6-1.2) mg/dl POC Creatinine 0.7 (0.6-1.3) mg/dl Est Cr Clr Drug Dosing Est GFR ( Amer) Est GFR (Non-Af Amer) BUN/Creatinine Ratio (10-20) Glucose (70-99) mg/dl POC Glucose (other) 177 H (70-99) mg/dl Calcium (8.5-10.1) mg/dl POC Ioniz Calcium Geraldo 1.19 (1.12-1.32) mmol/l Magnesium (1.8-2.4) mg/dl Total Bilirubin (0.2-1) mg/dl AST (15-37) U/L ALT (12-78) U/L Alkaline Phosphatase (45-117) U/L Total Creatine Kinase (26-192) U/L CK-MB (CK-2) (0.5-3.6) ng/ml CK/CKMB % Calc (0-3.0) POC Troponin I < 0.03 (0-0.045) ng/ml Troponin I (0-0.045) ng/ml Total Protein (6.4-8.2) gm/dl Albumin (3.4-5.0) gm/dl Globulin (2.5-4.0) gm/dl Albumin/Globulin Ratio (0.9-2) Lipase (73-393) U/L TSH (0.300-4.500) uIu/ml Free T4 (0.8-1.6) ng/dl Imaging Data Radiologist's Impression: Radiology results as stated below per my review and the radiologist's interpretation: XR chest 1V portable CLINICAL HISTORY: Atypical chest pain COMPARISON STUDY: No previous studies for comparison. FINDINGS: There is borderline elevation left hemidiaphragm. The heart is at the upper limits of normal in size. There is no overt failure. There is no lobar consolidation. There are no pleural effusions. There is minor interstitial thickening likely chronic.[ IMPRESSION: No active disease in the chest. Electronically signed by: Zeeshan Cano M.D. 03/26/2019 8:10 PM ECG Data Attestation: I personally reviewed and interpreted this ECG as follows: Indication: + chest pain Rate (beats per minute): 61 Rhythm: + sinus rhythm ECG ST segments: + ST depression and + ST elevation ECG Findings: + Other (ST depression in septal and anterior leads with ST elevation in lateral and high lateral leads. Normal QTC. ) Comparison ECG Date: no prior available Blood Pressure Blood Pressure Findings: Elevated blood pressure Blood Pressure Disposition: further management by hospitalist CHANDRIKA Narrative Patient is an 88-year-old female brought in by EMS that she was having chest pain rating through to her right chest. EKG was transmitted and she was having ST segment elevations with depressions. Heart alert was called. Upon arrival IV was established blood work was obtained and showed no significant leukocytosis. Hemoglobin is 16. INR was unremarkable. BMP along with LFTs bilirubin was unremarkable. Troponin was undetectable initially. TSH was low. Chest x-ray without any focal infiltrate. Patient was given aspirin prior to arrival and nitro in the ER. Monitor closely and placed on the pads of the monitor. History was reviewed. Patient was evaluated by Dr. Jennings at bedside. Patient was transferred to the Aluminum Siding Mechanic as a STEMI. Impression & Plan ST elevation (STEMI) myocardial infarction, Chest pain Discharge Plan Visit Data *Final* Discharge Date/Time: 03/26/19 20:15 Chief Complaint: Heart Alert Stated Complaint: HEART ALERT ED Provider: Sumeet Dumont Discharge Problem: ST elevation (STEMI) myocardial infarction, Chest pain Patient Disposition: Being Evaluated by Surgeon Discharge Instructions Interventions: ED Discharge Assessment Last Done: 03/26/19 20:15 Discharge Problem: ST elevation (STEMI) myocardial infarction Qualifiers: Involved coronary artery: unspecified coronary artery Qualified Code(s): I21.3 - ST elevation (STEMI) myocardial infarction of unspecified site Chest pain Qualifiers: Chest pain type: unspecified Qualified Code(s): R07.9 - Chest pain, unspecified The scribe's documentation has been prepared under my direction and personally reviewed by me in its entirety. I confirm that the note above accurately reflects all work, treatment, procedures, and medical decision making performed by me.
[2019-03-26] MEDS: POTASSIUM CHLORIDE / WTR 10 MEQ/100 ML PLCT IV SCH ×2 (23:20→23:52)
[2019-03-26] MEDS ORDERED: MAGNESIUM SULFATE / D5W 1 GM/100 ML BAG IV ONE (23:28)
[2019-03-27] MEDS: POTASSIUM CHLORIDE / WTR 10 MEQ/100 ML PLCT IV SCH (00:50)
[2019-03-27 01:27] LABS: Appearance Urine Clear (Clear); Bilirubin Urine Negative (Negative); Blood Urine Trace (Negative); Color Urine Yellow; Glucose Urine UA Negative (Negative); Ketones Urine 1+ (Negative); Leukocyte Esterase Urine Negative (Negative); Nitrite Urine Negative (Negative); Protein Urine Negative (Negative); Specific Gravity Urine 1.015 (1.000-1.030); Urobilinogen Urine Negative (Negative)
[2019-03-27 01:42] LABS: Bacteria Urine Negative (Negative); Hyaline Casts Urine 0-5 /lpf (0-5); RBC Urine 0-4 /hpf (0-4); WBC Urine 0-5 /hpf (0-5)
[2019-03-27 02:40] LABS: Basophils # (auto) 0.02 K/uL (0-0.2); Basophils % (auto) 0.2 %; Eosinophils # (auto) 0.03 K/uL (0-0.5); Eosinophils % (auto) 0.3 %; Hematocrit (blood only) 43.1 % (37-47); Hemoglobin 14.6 g/dL (12.0-16.0); Immature Granulocytes # (auto) 0.02 K/uL (0.00-0.02); Immature Granulocytes % (auto) 0.2 %; Lymphocytes # (auto) 0.86 K/uL (1.2-3.4); Lymphocytes % (auto) 8.8 %; Mean Corpuscular Hemoglobin 30.2 pg (25-34); Mean Corpuscular Hgb Conc 33.9 g/dL (32-36); Mean Corpuscular Volume 89.2 fL (80-100); Mean Platelet Volume 9.9 fL (7.4-10.4); Monocytes # (auto) 0.85 K/uL (0.11-0.59); Monocytes % (auto) 8.7 %; Neutrophils # (auto) 7.97 K/uL (1.4-6.5); Neutrophils % (auto) 81.8 %; Platelet Count 214 K/uL (130-400); RDW Coefficient of Variation 13.1 % (11.5-14.5); RDW Standard Deviation 43.3 fL (36.4-46.3); Red Blood Count 4.83 M/uL (4.2-5.4); White Blood Count 9.75 K/uL (4.8-10.8)
[2019-03-27 03:12] LABS: Calcium 8.4 mg/dl (8.5-10.1); Creatinine Clr Calc Pharmacy 36.1 ml/min; Est GFR (African American) 91.4; Est GFR (Non-African American) 78.9
[2019-03-27 03:13] LABS: BUN Creatinine Ratio 24.1 (10-20); Calcium 8.5 mg/dl (8.5-10.1); Creatinine Clr Calc Pharmacy 37.2 ml/min; Est GFR (African American) 92.3; Est GFR (Non-African American) 79.7; Magnesium 2.3 mg/dl (1.8-2.4)
[2019-03-27 03:15] LABS: Potassium 5.1 mmol/L (3.5-5.1)
[2019-03-27] MEDS: AMIODARONE / D5W 360 MG/200 ML BAG IV SCH ×2 (03:25→14:02)
[2019-03-27 03:36] LABS: Troponin I 40.9 ng/ml (0-0.045)
[2019-03-27 06:35] LABS: Estimated Average Glucose 123 mg/dl; Hemoglobin A1C 5.9 % (4.5-5.6)
[2019-03-27] MEDS ORDERED: ICU PROTOCOL FOR HYPERGLYCEMIA PRN (07:08)
[2019-03-27] MEDS: ATORVASTATIN 40 MG TAB PO SCH (08:18)
[2019-03-27] MEDS: ASPIRIN 81 MG ECTAB PO SCH (08:18)
[2019-03-27] MEDS: HEPARIN SOD 5,000 UNIT/0.5 ML VIAL SQ SCH ×2 (08:18→22:07)
--- NOTE | 2019-03-27 09:08 | Cardiology Progress Note ---
Date of Service March 27, 2019 Assessment & Plan (1) ST elevation (STEMI) myocardial infarction: --post PCI with 2 HONEY to circumflex 2. Ischemic cardiomyopathy - EF 40-45% with inferolateral wma 3. Frequent NSVT 4. Mild MR 5. Dementia Chest pain free. Hemodynamically stable. Well-perfused without significant congestion. No access site complications. Stable renal function, blood counts. Mental status at described baseline Frequent ventricular ectopy -- Trend troponin until peaks -- Continue DAPT with ASA, clopidogrel -- Start beta-kathy today, metoprolol 25 mg TID - uptitrate as BP allows -- continue amiodarone drip - eventually transition to 200mg TID -- continue statin -- start WEST as BP allows -- clarify code status with [facility] medicine and ICU team care. Subjective Denies chest pain this morning. No other new complaints. Frequent NSVT overnight on telemetry, asymptomatic. Off norepinephrine. Review of Systems Review of Systems: All systems reviewed & are unremarkable except as noted in HPI & below Physical Exam Physical Exam: General: Comfortable, no acute distress Eyes: Sclerae anicteric, extraocular movements intact HENT: Oropharynx clear mucous membranes moist Neck: No JVD. Lungs: Clear to auscultation bilaterally Cardiac: Regular rate and rhythm, 2/6 holosystolic murmur at apex Abdomen: Soft, nontender, nondistended, positive bowel sounds. Neuro: Nonfocal Psych: Alert orient x3, normal affect and mood Extremities/Vascular: -- 2+ radial bilaterally - no hematoma/ecchymosis at rt radial artery access site -- 2 + DP and PT pulses. Normal bilateral capillary refill. -- No edema Results & Data Vital Signs (Past 12 Hours) Vital Signs Temp Pulse Pulse Resp BP BP Pulse Ox 03/27/19 08:00 74 26 H 96 03/27/19 07:30 76 22 103/67 96 03/27/19 07:00 64 27 H 108/64 96 03/27/19 06:00 98.1 F 64 16 106/66 98 03/27/19 04:45 64 16 104/65 98 03/27/19 03:45 65 16 92/62 L 98 03/27/19 02:45 72 16 103/71 96 03/27/19 01:45 75 16 106/40 L 96 03/27/19 01:00 73 18 116/82 92 03/27/19 00:45 75 16 90/64 L 92 03/27/19 00:15 78 16 90/64 L 98 03/27/19 00:00 79 72 16 97/67 L 92 03/26/19 23:45 84 16 104/46 L 98 03/26/19 23:30 76 16 103/66 94 03/26/19 23:15 98.4 F 79 16 94/55 L 92 03/26/19 23:01 79 20 109/58 L 94 03/26/19 23:00 79 16 96 03/26/19 22:31 83 17 99 03/26/19 22:30 82 16 107/69 99 03/26/19 22:28 97.7 F 03/26/19 22:17 80 97 03/26/19 22:15 86 105/63 03/26/19 22:01 87 93 03/26/19 22:00 89 117/68 96 03/26/19 21:54 94 H 108/64 88 L 03/26/19 21:52 113 H 03/26/19 21:50 97.7 F 86 18 117/68 97 Pulse Ox 03/27/19 08:00 03/27/19 07:30 03/27/19 07:00 03/27/19 06:00 03/27/19 04:45 03/27/19 03:45 03/27/19 02:45 03/27/19 01:45 03/27/19 01:00 03/27/19 00:45 03/27/19 00:15 03/27/19 00:00 98 03/26/19 23:45 03/26/19 23:30 03/26/19 23:15 03/26/19 23:01 03/26/19 23:00 03/26/19 22:31 03/26/19 22:30 03/26/19 22:28 03/26/19 22:17 03/26/19 22:15 03/26/19 22:01 03/26/19 22:00 03/26/19 21:54 03/26/19 21:52 03/26/19 21:50 PG Care Time/CCT Total # of Minutes Spent Total Time Spent with Patient: Total time spent is greater than 50% in coordination of care (as documented) at patient's floor/unit and/or counseling patient: (1) ST elevation (STEMI) myocardial infarction Involved coronary artery: unspecified coronary artery Qualified Code(s): I21.3 - ST elevation (STEMI) myocardial infarction of unspecified site
[2019-03-27] MEDS: METOPROLOL TARTRATE 25 MG TAB PO SCH ×3 (09:24→22:09)
[2019-03-27 10:10] LABS: Thyroid Stimulating Hormone 0.02 uIu/ml (0.300-4.500); Troponin I 79.7 ng/ml (0-0.045)
--- NOTE | 2019-03-27 10:22 | Critical Care Progress Note ---
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 Son is POA currently at home with the patient's . -Per son patient is demented at baseline -We will consult social work and PT OT Cardiac - STEMI Patient had ST elevation in lateral leads, initial troponin negative, now status post heart catheterization with successful placement of HONEY x2 to the mid circumflex artery. Patient had episode of V. tach and bradycardia during heart cath and received defibrillation x2 and atropine, was also placed on levo fed drip but is now weaned off. Given 600 mg clopidogrel bolus post-cath -We will continue to trend troponins until they peak, most recent 79.7 -Follow-up cardiac echo -LFTs within normal limits -A1c is 5.9 -Patient started on ASA, Plavix, atorvastatin -Continuous monitoring on telemetry V. tachpatient experienced 2 episodes during heart catheterization of unstable V. tach and required defibrillation. Was bolused with amiodarone during catheterization placed on amiodarone drip. -She continues to have many PVCs and frequent nonsustained runs of V. tach, likely secondary to reperfusio. -Continue amiodarone infusion per cards -We will maximize electrolytes -Continue monitoring on telemetry -Started on metoprolol tartrate 25 mg p.o. 3 times daily Respiratory - History of tobacco abuse, currently maintaining sats on room air, will continue to monitor with continuous oxygen saturation probe GI - Heart healthy diet RENAL/LYTES - Creatinine stable, maximize electrolytes for potassium greater than 4 and mag greater than 2 - Strict I's and O's ENDO - No history DM or thyroid disease ICU hyperglycemic protocol Hemoglobin A1c 5.9 will defer further management to primary care team TSH was initially very low, T4 within normal limits. -Follow-up repeat TSH HEME - H&H stable, monitor routine CBC ID - No indication for infectious process at this time LINES/IV ACCESS - Peripheral IVs DVT PROPHYLAXIS - SCDs, heparin Dispo: ICU Thank you for allowing me to participate in this patient's care. Please see my attending Dr. Mann's attestation for further recommendations. 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 Valentine was the resident-physician during care of patient. I separately evaluated patient for orozco portions of the history and the exam. I was present during the critical portion of medical decision making, and I discussed the case with the resident. I generally agree with the findings and plan except for any additions/exceptions noted. Patient is doing better today status post stenting to the RCA. She is having runs of V. tach periodically. She is currently on amiodarone drip at 0.5 mg an hour and this will be continued per Dr. Reginald Jennings recommendation. I have also added 25 mg of metoprolol tartrate 3 times daily. Her TSH was low on initial check however the free T4 was normal. I am rechecking her TSH. We are trending her troponins. An echo is pending. Dr. Jennings did note that the ejection fraction appeared to be 45%. We will check a BNP as well given that it does sound like she has some crackles bilaterally. Electrolytes are being replaced appropriately. She has been hemodynamically stable since briefly requiring norepinephrine after having to be shocked twice for her ventricular tachycardia yesterday. She will remain in the ICU given her arrhythmias. I have personally spent 30 minutes of critical care time in the direct management of this patient. This is a life/limb threatening event. This includes time spent evaluating patient, direct bedside care, chart review, placing orders, interpretation of diagnostic studies, discussion with consultants, patient, and/or family members regarding treatment decisions, as well as other required patient management activities. This time is exclusive of all separately billable procedures, and teaching time and separate from and in addition to any other critical care service time. Subjective Patient laying in bed with one-to-one at the bedside this morning, patient no acute distress, resting comfortably. Patient reports doing well overnight, no complaints. She reports that she is currently chest pain-free. She is pleasantly demented, when questioned if she remembers what happened yesterday she responds better now. When you tell her she had a heart attack she responds, "o my gosh". Patient reports he is currently chest pain-free, however experienced chest pain yesterday while skiing. Patient is not alert or oriented, otherwise she is doing well and meeting postoperative milestones. Overnight she had numerous episodes of ventricular tachycardia which resolved spontaneously without medical intervention. Patient continues to be on amiodarone drip. All questions answered, acute concerns related to the recurrent episodes of V. tach. Physical Exam Physical Exam: General: Elderly female in no acute distress HEENT: Normocephalic atraumatic Neck: Trachea midline, no thyromegaly, normal to visual inspection Cardiac: Regular rate and rhythm, normal S1, normal S2, did not appreciate any significant murmurs rubs or gallops, no JVD, normal capillary refill. On the monitor she has intermittent runs of nonsustained V. tach with multiple PVCs. Respiratory: Clear to auscultation bilaterally without significant wheezes, rales, rhonchi. Symmetrical chest rise bilaterally GI: Soft, nontender, nondistended MSK: Moves all extremities Skin: No obvious deformities Neuro: Alert and oriented x0, patient is pleasantly demented Psych: Calm, cooperative, pleasant Results & Data Vital Signs (Past 12 Hours) Vital Signs Temp Pulse Pulse Resp BP BP Pulse Ox 03/27/19 10:00 70 19 112/65 97 03/27/19 09:31 78 23 111/60 97 03/27/19 09:00 82 28 H 122/74 97 03/27/19 08:30 85 18 116/75 96 03/27/19 08:02 75 27 H 96 03/27/19 08:00 74 26 H 96 03/27/19 07:30 76 22 103/67 96 03/27/19 07:00 64 27 H 108/64 96 03/27/19 06:00 36.7 C 64 16 106/66 98 03/27/19 04:45 64 16 104/65 98 03/27/19 03:45 65 16 92/62 L 98 03/27/19 02:45 72 16 103/71 96 03/27/19 01:45 75 16 106/40 L 96 03/27/19 01:00 73 18 116/82 92 03/27/19 00:45 75 16 90/64 L 92 03/27/19 00:15 78 16 90/64 L 98 03/27/19 00:00 79 72 16 97/67 L 92 03/26/19 23:45 84 16 104/46 L 98 03/26/19 23:30 76 16 103/66 94 03/26/19 23:15 36.9 C 79 16 94/55 L 92 03/26/19 23:01 79 20 109/58 L 94 03/26/19 23:00 79 16 96 03/26/19 22:31 83 17 99 03/26/19 22:30 82 16 107/69 99 03/26/19 22:28 36.5 C Pulse Ox 03/27/19 10:00 03/27/19 09:31 03/27/19 09:00 03/27/19 08:30 03/27/19 08:02 03/27/19 08:00 03/27/19 07:30 03/27/19 07:00 03/27/19 06:00 03/27/19 04:45 03/27/19 03:45 03/27/19 02:45 03/27/19 01:45 03/27/19 01:00 03/27/19 00:45 03/27/19 00:15 03/27/19 00:00 98 03/26/19 23:45 03/26/19 23:30 03/26/19 23:15 03/26/19 23:01 03/26/19 23:00 03/26/19 22:31 03/26/19 22:30 03/26/19 22:28 Laboratory Results 03/27/19 03/27/19 03/27/19 Range/Units Unknown 09:06 09:06 WBC (4.8-10.8) K/uL RBC (4.2-5.4) M/uL Hgb (12.0-16.0) g/dL POC Hgb (12.0-16.0) g/dl Hct (37-47) % POC Hct (37-47) % MCV (80-100) fL MCH (25-34) pg MCHC (32-36) g/dL RDW Std Deviation (36.4-46.3) fL RDW Coeff of Mohit (11.5-14.5) % Plt Count (130-400) K/uL MPV (7.4-10.4) fL Immature Gran % (Auto) % Neut % (Auto) % Lymph % (Auto) % [place] % (Auto) % Eos % (Auto) % Baso % (Auto) % Immature Gran # (Auto) (0.00-0.02) K/uL Neut # (Auto) (1.4-6.5) K/uL Lymph # (Auto) (1.2-3.4) K/uL [place] # (Auto) (0.11-0.59) K/uL Eos # (Auto) (0-0.5) K/uL Baso # (Auto) (0-0.2) K/uL PT (9.0-12.0) Seconds INR (0.9-1.1) APTT (21.0-31.0) Seconds PTT Ratio POC Sodium (135-144) mEq/L Sodium (136-145) mmol/L POC Potassium (3.3-5.0) mEq/L Potassium (3.5-5.1) mmol/L POC Chloride (101-112) mEq/L Chloride (98-107) mmol/L Carbon Dioxide (21-32) mmol/L POC Total CO2 (24-31) mEq/l Anion Gap (3-11) POC Anion Gap (16-25) mmol/L POC BUN (7-18) mg/dl BUN (7-18) mg/dl Creatinine (0.6-1.2) mg/dl POC Creatinine (0.6-1.3) mg/dl Est Cr Clr Drug Dosing Est GFR ( Amer) Est GFR (Non-Af Amer) BUN/Creatinine Ratio (10-20) Glucose (70-99) mg/dl POC Glucose (70-99) POC Glucose (other) (70-99) mg/dl Estimat Average Glucose mg/dl Hemoglobin A1c (4.5-5.6) % Calcium (8.5-10.1) mg/dl POC Ioniz Calcium Geraldo (1.12-1.32) mmol/l Phosphorus (2.5-4.9) mg/dl Magnesium (1.8-2.4) mg/dl Total Bilirubin (0.2-1) mg/dl AST (15-37) U/L ALT (12-78) U/L Alkaline Phosphatase (45-117) U/L Total Creatine Kinase (26-192) U/L CK-MB (CK-2) (0.5-3.6) ng/ml CK/CKMB % Calc (0-3.0) POC Troponin I (0-0.045) ng/ml Troponin I 79.700 H* (0-0.045) ng/ml NT-Pro-B Natriuret Pep 2135 H (0-1800) pg/ml Total Protein (6.4-8.2) gm/dl Albumin (3.4-5.0) gm/dl Globulin (2.5-4.0) gm/dl Albumin/Globulin Ratio (0.9-2) Triglycerides (0-150) mg/dl Cholesterol (0-200) mg/dl LDL Cholesterol, Calc mg/dl VLDL Cholesterol, Calc mg/dl HDL Cholesterol mg/dl Cholesterol/HDL Ratio Lipase (73-393) U/L TSH 0.020 L (0.300-4.500) uIu/ml Free T4 (0.8-1.6) ng/dl Urine Color Urine Appearance (Clear) Urine pH (4.5-7.5) Ur Specific [place] (1.000-1.030) Urine Protein (Negative) Urine Glucose (UA) (Negative) Urine Ketones (Negative) Urine Blood (Negative) Urine Nitrite (Negative) Urine Bilirubin (Negative) Urine Urobilinogen (Negative) Ur Leukocyte Esterase (Negative) Urine RBC (0-4) /hpf Urine WBC (0-5) /hpf Ur Epithelial Cells (0-5) /lpf Urine Bacteria (Negative) Hyaline Casts (0-5) /lpf Nasal Screen MRSA (PCR) Negative (Negative) 03/27/19 03/27/19 03/27/19 Range/Units 02:28 02:28 02:28 WBC 9.75 (4.8-10.8) K/uL RBC 4.83 (4.2-5.4) M/uL Hgb 14.6 (12.0-16.0) g/dL POC Hgb (12.0-16.0) g/dl Hct 43.1 (37-47) % POC Hct (37-47) % MCV 89.2 (80-100) fL MCH 30.2 (25-34) pg MCHC 33.9 (32-36) g/dL RDW Std Deviation 43.3 (36.4-46.3) fL RDW Coeff of Mohit 13.1 (11.5-14.5) % Plt Count 214 (130-400) K/uL MPV 9.9 (7.4-10.4) fL Immature Gran % (Auto) 0.2 % Neut % (Auto) 81.8 % Lymph % (Auto) 8.8 % [place] % (Auto) 8.7 % Eos % (Auto) 0.3 % Baso % (Auto) 0.2 % Immature Gran # (Auto) 0.02 (0.00-0.02) K/uL Neut # (Auto) 7.97 H (1.4-6.5) K/uL Lymph # (Auto) 0.86 L (1.2-3.4) K/uL [place] # (Auto) 0.85 H (0.11-0.59) K/uL Eos # (Auto) 0.03 (0-0.5) K/uL Baso # (Auto) 0.02 (0-0.2) K/uL PT (9.0-12.0) Seconds INR (0.9-1.1) APTT (21.0-31.0) Seconds PTT Ratio POC Sodium (135-144) mEq/L Sodium 140 (136-145) mmol/L POC Potassium (3.3-5.0) mEq/L Potassium 5.0 (3.5-5.1) mmol/L POC Chloride (101-112) mEq/L Chloride 111 H (98-107) mmol/L Carbon Dioxide 25 (21-32) mmol/L POC Total CO2 (24-31) mEq/l Anion Gap 4.0 (3-11) POC Anion Gap (16-25) mmol/L POC BUN (7-18) mg/dl BUN 15 (7-18) mg/dl Creatinine 0.64 (0.6-1.2) mg/dl POC Creatinine (0.6-1.3) mg/dl Est Cr Clr Drug Dosing 37.2 Est GFR ( Amer) 92.3 Est GFR (Non-Af Amer) 79.7 BUN/Creatinine Ratio 24.1 H (10-20) Glucose 122 H (70-99) mg/dl POC Glucose (70-99) POC Glucose (other) (70-99) mg/dl Estimat Average Glucose 123 mg/dl Hemoglobin A1c 5.9 H (4.5-5.6) % Calcium 8.5 (8.5-10.1) mg/dl POC Ioniz Calcium Geraldo (1.12-1.32) mmol/l Phosphorus 3.0 (2.5-4.9) mg/dl Magnesium 2.3 (1.8-2.4) mg/dl Total Bilirubin (0.2-1) mg/dl AST (15-37) U/L ALT (12-78) U/L Alkaline Phosphatase (45-117) U/L Total Creatine Kinase (26-192) U/L CK-MB (CK-2) (0.5-3.6) ng/ml CK/CKMB % Calc (0-3.0) POC Troponin I (0-0.045) ng/ml Troponin I (0-0.045) ng/ml NT-Pro-B Natriuret Pep (0-1800) pg/ml Total Protein (6.4-8.2) gm/dl Albumin (3.4-5.0) gm/dl Globulin (2.5-4.0) gm/dl Albumin/Globulin Ratio (0.9-2) Triglycerides (0-150) mg/dl Cholesterol (0-200) mg/dl LDL Cholesterol, Calc mg/dl VLDL Cholesterol, Calc mg/dl HDL Cholesterol mg/dl Cholesterol/HDL Ratio Lipase (73-393) U/L TSH (0.300-4.500) uIu/ml Free T4 (0.8-1.6) ng/dl Urine Color Urine Appearance (Clear) Urine pH (4.5-7.5) Ur Specific [place] (1.000-1.030) Urine Protein (Negative) Urine Glucose (UA) (Negative) Urine Ketones (Negative) Urine Blood (Negative) Urine Nitrite (Negative) Urine Bilirubin (Negative) Urine Urobilinogen (Negative) Ur Leukocyte Esterase (Negative) Urine RBC (0-4) /hpf Urine WBC (0-5) /hpf Ur Epithelial Cells (0-5) /lpf Urine Bacteria (Negative) Hyaline Casts (0-5) /lpf Nasal Screen MRSA (PCR) (Negative) 03/27/19 03/27/19 03/27/19 Range/Units 02:28 01:00 00:06 WBC (4.8-10.8) K/uL RBC (4.2-5.4) M/uL Hgb (12.0-16.0) g/dL POC Hgb (12.0-16.0) g/dl Hct (37-47) % POC Hct (37-47) % MCV (80-100) fL MCH (25-34) pg MCHC (32-36) g/dL RDW Std Deviation (36.4-46.3) fL RDW Coeff of Mohit (11.5-14.5) % Plt Count (130-400) K/uL MPV (7.4-10.4) fL Immature Gran % (Auto) % Neut % (Auto) % Lymph % (Auto) % [place] % (Auto) % Eos % (Auto) % Baso % (Auto) % Immature Gran # (Auto) (0.00-0.02) K/uL Neut # (Auto) (1.4-6.5) K/uL Lymph # (Auto) (1.2-3.4) K/uL [place] # (Auto) (0.11-0.59) K/uL Eos # (Auto) (0-0.5) K/uL Baso # (Auto) (0-0.2) K/uL PT (9.0-12.0) Seconds INR (0.9-1.1) APTT (21.0-31.0) Seconds PTT Ratio POC Sodium (135-144) mEq/L Sodium 140 (136-145) mmol/L POC Potassium (3.3-5.0) mEq/L Potassium 5.1 D (3.5-5.1) mmol/L POC Chloride (101-112) mEq/L Chloride 110 H (98-107) mmol/L Carbon Dioxide 26 (21-32) mmol/L POC Total CO2 (24-31) mEq/l Anion Gap 4.0 (3-11) POC Anion Gap (16-25) mmol/L POC BUN (7-18) mg/dl BUN 17 (7-18) mg/dl Creatinine 0.66 (0.6-1.2) mg/dl POC Creatinine (0.6-1.3) mg/dl Est Cr Clr Drug Dosing 36.1 Est GFR ( Amer) 91.4 Est GFR (Non-Af Amer) 78.9 BUN/Creatinine Ratio 25.0 H (10-20) Glucose 119 H (70-99) mg/dl POC Glucose 158 H (70-99) POC Glucose (other) (70-99) mg/dl Estimat Average Glucose mg/dl Hemoglobin A1c (4.5-5.6) % Calcium 8.4 L (8.5-10.1) mg/dl POC Ioniz Calcium Geraldo (1.12-1.32) mmol/l Phosphorus (2.5-4.9) mg/dl Magnesium (1.8-2.4) mg/dl Total Bilirubin (0.2-1) mg/dl AST (15-37) U/L ALT (12-78) U/L Alkaline Phosphatase (45-117) U/L Total Creatine Kinase (26-192) U/L CK-MB (CK-2) (0.5-3.6) ng/ml CK/CKMB % Calc (0-3.0) POC Troponin I (0-0.045) ng/ml Troponin I 40.900 H* (0-0.045) ng/ml NT-Pro-B Natriuret Pep (0-1800) pg/ml Total Protein (6.4-8.2) gm/dl Albumin (3.4-5.0) gm/dl Globulin (2.5-4.0) gm/dl Albumin/Globulin Ratio (0.9-2) Triglycerides 95 (0-150) mg/dl Cholesterol 142 (0-200) mg/dl LDL Cholesterol, Calc 66 mg/dl VLDL Cholesterol, Calc 19 mg/dl HDL Cholesterol 57 mg/dl Cholesterol/HDL Ratio 3 Lipase (73-393) U/L TSH (0.300-4.500) uIu/ml Free T4 (0.8-1.6) ng/dl Urine Color Yellow Urine Appearance Clear (Clear) Urine pH 5.0 (4.5-7.5) Ur Specific [place] 1.015 (1.000-1.030) Urine Protein Negative (Negative) Urine Glucose (UA) Negative (Negative) Urine Ketones 1+ H (Negative) Urine Blood Trace H (Negative) Urine Nitrite Negative (Negative) Urine Bilirubin Negative (Negative) Urine Urobilinogen Negative (Negative) Ur Leukocyte Esterase Negative (Negative) Urine RBC 0-4 (0-4) /hpf Urine WBC 0-5 (0-5) /hpf Ur Epithelial Cells 10-20 H (0-5) /lpf Urine Bacteria Negative (Negative) Hyaline Casts 0-5 (0-5) /lpf Nasal Screen MRSA (PCR) (Negative) 03/26/19 03/26/19 03/26/19 Range/Units Unknown 20:14 20:11 WBC (4.8-10.8) K/uL RBC (4.2-5.4) M/uL Hgb (12.0-16.0) g/dL POC Hgb 17.0 H (12.0-16.0) g/dl Hct (37-47) % POC Hct 50 H (37-47) % MCV (80-100) fL MCH (25-34) pg MCHC (32-36) g/dL RDW Std Deviation (36.4-46.3) fL RDW Coeff of Mohit (11.5-14.5) % Plt Count (130-400) K/uL MPV (7.4-10.4) fL Immature Gran % (Auto) % Neut % (Auto) % Lymph % (Auto) % [place] % (Auto) % Eos % (Auto) % Baso % (Auto) % Immature Gran # (Auto) (0.00-0.02) K/uL Neut # (Auto) (1.4-6.5) K/uL Lymph # (Auto) (1.2-3.4) K/uL [place] # (Auto) (0.11-0.59) K/uL Eos # (Auto) (0-0.5) K/uL Baso # (Auto) (0-0.2) K/uL PT (9.0-12.0) Seconds INR (0.9-1.1) APTT (21.0-31.0) Seconds PTT Ratio POC Sodium 143 (135-144) mEq/L Sodium (136-145) mmol/L POC Potassium 3.6 (3.3-5.0) mEq/L Potassium (3.5-5.1) mmol/L POC Chloride 105 (101-112) mEq/L Chloride (98-107) mmol/L Carbon Dioxide (21-32) mmol/L POC Total CO2 27 (24-31) mEq/l Anion Gap (3-11) POC Anion Gap 14.0 L (16-25) mmol/L POC BUN 19 H (7-18) mg/dl BUN (7-18) mg/dl Creatinine (0.6-1.2) mg/dl POC Creatinine 0.7 (0.6-1.3) mg/dl Est Cr Clr Drug Dosing Est GFR ( Amer) Est GFR (Non-Af Amer) BUN/Creatinine Ratio (10-20) Glucose (70-99) mg/dl POC Glucose (70-99) POC Glucose (other) 177 H (70-99) mg/dl Estimat Average Glucose mg/dl Hemoglobin A1c (4.5-5.6) % Calcium (8.5-10.1) mg/dl POC Ioniz Calcium Geraldo 1.19 (1.12-1.32) mmol/l Phosphorus (2.5-4.9) mg/dl Magnesium (1.8-2.4) mg/dl Total Bilirubin (0.2-1) mg/dl AST (15-37) U/L ALT (12-78) U/L Alkaline Phosphatase (45-117) U/L Total Creatine Kinase (26-192) U/L CK-MB (CK-2) (0.5-3.6) ng/ml CK/CKMB % Calc (0-3.0) POC Troponin I < 0.03 (0-0.045) ng/ml Troponin I (0-0.045) ng/ml NT-Pro-B Natriuret Pep (0-1800) pg/ml Total Protein (6.4-8.2) gm/dl Albumin (3.4-5.0) gm/dl Globulin (2.5-4.0) gm/dl Albumin/Globulin Ratio (0.9-2) Triglycerides (0-150) mg/dl Cholesterol (0-200) mg/dl LDL Cholesterol, Calc mg/dl VLDL Cholesterol, Calc mg/dl HDL Cholesterol mg/dl Cholesterol/HDL Ratio Lipase (73-393) U/L TSH (0.300-4.500) uIu/ml Free T4 (0.8-1.6) ng/dl Urine Color Urine Appearance (Clear) Urine pH (4.5-7.5) Ur Specific [place] (1.000-1.030) Urine Protein (Negative) Urine Glucose (UA) (Negative) Urine Ketones (Negative) Urine Blood (Negative) Urine Nitrite (Negative) Urine Bilirubin (Negative) Urine Urobilinogen (Negative) Ur Leukocyte Esterase (Negative) Urine RBC (0-4) /hpf Urine WBC (0-5) /hpf Ur Epithelial Cells (0-5) /lpf Urine Bacteria (Negative) Hyaline Casts (0-5) /lpf Nasal Screen MRSA (PCR) Negative (Negative) 03/26/19 03/26/19 03/26/19 Range/Units 19:45 19:45 19:45 WBC 10.39 (4.8-10.8) K/uL RBC 5.49 H (4.2-5.4) M/uL Hgb 16.4 H (12.0-16.0) g/dL POC Hgb (12.0-16.0) g/dl Hct 49.2 H (37-47) % POC Hct (37-47) % MCV 89.6 (80-100) fL MCH 29.9 (25-34) pg MCHC 33.3 (32-36) g/dL RDW Std Deviation 43.1 (36.4-46.3) fL RDW Coeff of Mohit 13.1 (11.5-14.5) % Plt Count 269 (130-400) K/uL MPV 11.3 H (7.4-10.4) fL Immature Gran % (Auto) 0.2 % Neut % (Auto) 73.5 % Lymph % (Auto) 16.7 % [place] % (Auto) 5.6 % Eos % (Auto) 3.5 % Baso % (Auto) 0.5 % Immature Gran # (Auto) 0.02 (0.00-0.02) K/uL Neut # (Auto) 7.65 H (1.4-6.5) K/uL Lymph # (Auto) 1.73 (1.2-3.4) K/uL [place] # (Auto) 0.58 (0.11-0.59) K/uL Eos # (Auto) 0.36 (0-0.5) K/uL Baso # (Auto) 0.05 (0-0.2) K/uL PT 10.3 (9.0-12.0) Seconds INR 1.0 (0.9-1.1) APTT 24.6 (21.0-31.0) Seconds PTT Ratio 0.9 POC Sodium (135-144) mEq/L Sodium 141 (136-145) mmol/L POC Potassium (3.3-5.0) mEq/L Potassium 3.6 (3.5-5.1) mmol/L POC Chloride (101-112) mEq/L Chloride 107 (98-107) mmol/L Carbon Dioxide 28 (21-32) mmol/L POC Total CO2 (24-31) mEq/l Anion Gap 6.0 (3-11) POC Anion Gap (16-25) mmol/L POC BUN (7-18) mg/dl BUN 18 (7-18) mg/dl Creatinine 0.77 (0.6-1.2) mg/dl POC Creatinine (0.6-1.3) mg/dl Est Cr Clr Drug Dosing Not Reportable Est GFR ( Amer) 80.5 Est GFR (Non-Af Amer) 69.4 BUN/Creatinine Ratio 23.3 H (10-20) Glucose 176 H (70-99) mg/dl POC Glucose (70-99) POC Glucose (other) (70-99) mg/dl Estimat Average Glucose mg/dl Hemoglobin A1c (4.5-5.6) % Calcium 9.5 (8.5-10.1) mg/dl POC Ioniz Calcium Geraldo (1.12-1.32) mmol/l Phosphorus (2.5-4.9) mg/dl Magnesium 2.1 (1.8-2.4) mg/dl Total Bilirubin 0.5 (0.2-1) mg/dl AST 13 L (15-37) U/L ALT 16 (12-78) U/L Alkaline Phosphatase 73 (45-117) U/L Total Creatine Kinase 78 (26-192) U/L CK-MB (CK-2) 1.9 (0.5-3.6) ng/ml CK/CKMB % Calc 2.4 (0-3.0) POC Troponin I (0-0.045) ng/ml Troponin I < 0.015 (0-0.045) ng/ml NT-Pro-B Natriuret Pep (0-1800) pg/ml Total Protein 7.9 (6.4-8.2) gm/dl Albumin 4.3 (3.4-5.0) gm/dl Globulin 3.6 (2.5-4.0) gm/dl Albumin/Globulin Ratio 1.2 (0.9-2) Triglycerides (0-150) mg/dl Cholesterol (0-200) mg/dl LDL Cholesterol, Calc mg/dl VLDL Cholesterol, Calc mg/dl HDL Cholesterol mg/dl Cholesterol/HDL Ratio Lipase 74 (73-393) U/L TSH 0.009 L (0.300-4.500) uIu/ml Free T4 1.39 (0.8-1.6) ng/dl Urine Color Urine Appearance (Clear) Urine pH (4.5-7.5) Ur Specific [place] (1.000-1.030) Urine Protein (Negative) Urine Glucose (UA) (Negative) Urine Ketones (Negative) Urine Blood (Negative) Urine Nitrite (Negative) Urine Bilirubin (Negative) Urine Urobilinogen (Negative) Ur Leukocyte Esterase (Negative) Urine RBC (0-4) /hpf Urine WBC (0-5) /hpf Ur Epithelial Cells (0-5) /lpf Urine Bacteria (Negative) Hyaline Casts (0-5) /lpf Nasal Screen MRSA (PCR) (Negative) Medications Administered Current Inpatient Medications Acetaminophen (Tylenol) 650 mg PO Q4H PRN PRN Reason: Mild Pain (scale 1-3) Stop: 04/25/19 21:24 Aspirin (Ecotrin Ectab) 81 mg PO [facility] Stop: 04/26/19 08:59 Last Admin: 03/27/19 08:18 Dose: 81 mg Documented by: Atorvastatin Calcium (Lipitor) [facility] Stop: 04/26/19 08:59 Last Admin: 03/27/19 08:18 Dose: 40 mg Documented by: Clopidogrel Bisulfate (Plavix) 75 mg PO DAILY@2100 [facility] Stop: 04/26/19 20:59 Heparin Sodium (Porcine) (Heparin Sodium (Porcine)) 5,000 units SQ Q12 [facility] Stop: 04/26/19 08:59 Last Admin: 03/27/19 08:18 Dose: 5,000 units Documented by: Amiodarone HCl/Dextrose (Nexterone / D5w) 360 mg in 200 mls @ 16.667 mls/hr IV .Q12H [place] Stop: 04/26/19 03:59 Last Admin: 03/27/19 03:25 Dose: 0.5 mg/min, 16.7 mls/hr Documented by: Metoprolol Tartrate (Lopressor) 25 mg PO TID [place] Stop: 04/26/19 08:59 Last Admin: 03/27/19 09:24 Dose: 25 mg Documented by: Miscellaneous (I[facility] Protocol For Hyperglycemia) 1 ea N/A PRN PRN; Protocol PRN Reason: Hyperglycemia Protocol Stop: 03/28/19 21:21 Nitroglycerin (Nitrostat) 0.4 mg SL PRN PRN PRN Reason: Chest Pain Stop: 04/25/19 21:24 Resident Activity Tracking Resident Involvement: Resident Care Provided Care Provided: Adult Hospital Medicine (1) Chest pain Chest pain type: unspecified Qualified Code(s): R07.9 - Chest pain, unspecified
--- NOTE | 2019-03-27 10:27 | Billing Data ---
Coding Level of Care Code Critical Care 1st 30-74 mins
--- NOTE | 2019-03-27 16:44 | Hospitalist Progress Note ---
Date of Service March 27, 2019 Assessment & Plan (1) STEMI (ST elevation myocardial infarction): Present with chest pain and heart alert called EKG showed lateral ST elevations with anterior ST depressions on admission Initial troponin normal had emergent cardiac cath done that showed lateral STEMI/acute 100% mid circumflex occlusion. Mild multi-vessel non-culprit coronary artery diseas Successful PCI of mid to distal circumflex with 2 overlapping drug-eluting stent troponin peak to 79, now trending down 70 Cardiology on board Continue DAPT with ASA, clopidogrel Staring on metoprolol 25 mg TID and statin Plan to start on low dose ACEI if BP stable Follow up ECHO Continue monitor closely (2) Ventricular tachycardia: Frequent NSVT Experienced 2 episodes during heart catheterization of unstable V. tach and required defibrillation. On amiodarone drip Plan to transition to amiodarone oral Continue monitor closely (3) Senile dementia: 1 to 1 sitter Stable (4) Tobacco use disorder: Counseling on smoking cessation (5) DVT prophylaxis: SCDs On heparin subq CODE STATUS Full Code Disposition Continue monitor in ICU Subjective Pt was seen and examined Lying in bed with no distress with 1 to 1 sitter Pt said that she feels fine She denies any chest pain, palpitation and SOB Physical Exam Physical Exam: General- No acute distress Head- atraumatic Eyes- PERRL, EOMI, ENT- oropharynx clear Neck- supple, no JVD Lungs- clear to auscultation Heart- regular rhythm; no murmur Abdomen- normal bowel sounds, soft, nontender Extremities- no calf tenderness, no hematoma in R wrist area Neuro- alert, oriented x 3; PERRL, EOMI; no facial palsy; no dysarthria Skin- warm & dry Results & Data Vital Signs (Past 12 Hours) Vital Signs Temp Pulse Pulse Resp BP BP Pulse Ox 03/27/19 16:01 97 03/27/19 15:00 67 23 115/68 95 03/27/19 14:00 68 17 102/61 93 03/27/19 13:19 67 28 H 113/69 91 03/27/19 13:00 72 19 94 03/27/19 12:30 70 18 109/68 96 03/27/19 12:00 36.4 C L 68 72 28 H 116/70 98 03/27/19 10:00 70 19 112/65 97 03/27/19 09:31 78 23 111/60 97 03/27/19 09:00 82 28 H 122/74 97 03/27/19 08:30 85 18 116/75 96 03/27/19 08:02 75 27 H 96 03/27/19 08:00 74 26 H 96 03/27/19 07:30 76 22 103/67 96 03/27/19 07:00 64 27 H 108/64 96 03/27/19 06:00 36.7 C 64 16 106/66 98 03/27/19 04:45 64 16 104/65 98
[2019-03-27] MEDS ORDERED: ALBUT/IPRATROP 3MG/0.5MG NEB 3 ML VIAL NEB STA (19:17)
[2019-03-27] MEDS ORDERED: NITROGLYCERIN SL 0.4 MG/TAB TAB SL STA (19:19)
[2019-03-27] MEDS ORDERED: MoRPHine SULFATE 4 MG/ML 1 ML CARP\\VIAL IV PRN (19:24)
[2019-03-27] MEDS ORDERED: TRAMADOL HCL 50 MG TABLET PO PRN (19:24)
[2019-03-27] MEDS ORDERED: PROMETHAZINE HCL 12.5 MG in SODIUM CHLORIDE 0.9% 50 ML IV PRN (19:25)
[2019-03-27] MEDS ORDERED: FUROSEMIDE 40 MG/4 ML VIAL IV ONE (19:32)
[2019-03-27] MEDS ORDERED: FUROSEMIDE 40 MG in SYRINGE 0 ML IV ONE (19:35)
--- NOTE | 2019-03-27 19:36 | XRay Report ---
XR chest 1V portable CLINICAL HISTORY: sob dyspnea COMPARISON STUDY: 03/26/2019 FINDINGS: Interval development of congestive heart failure and/or pulmonary edema. Diaphragms are smo oth. Trace amount pleural fluid lateral costophrenic angles bilaterally. IMPRESSION: Interval development of congestive failure versus pulmonary edema. The above report was generated using voice recognition software. It may contain grammatical, syntax or spelling errors. Electronically signed by: Fernando Silva M.D. 03/27/2019 7:35 PM
[2019-03-27] MEDS ORDERED: METOPROLOL TARTRATE 1 MG/ML VIAL IV ONE (19:39)
[2019-03-27] MEDS ORDERED: HydrALAZINE HCL 20 MG/ML VIAL IV ONE (19:40)
[2019-03-27] MEDS ORDERED: HydrALAZINE HCL 20 MG/ML VIAL ONE (19:41)
[2019-03-27 20:04] LABS: BUN Creatinine Ratio 25.4 (10-20); Calcium 9.3 mg/dl (8.5-10.1); Creatinine Clr Calc Pharmacy 28.7 ml/min; Magnesium 2.1 mg/dl (1.8-2.4); Potassium 4.7 mmol/L (3.5-5.1)
[2019-03-27 20:06] LABS: Base Excess ABG -1.8 mEq/L (-9-1.8); HCO3 ABG 25 mmol/L (19-24); PCO2 ABG 50 mmHg (35-46); PO2 ABG 66 mm/Hg (80-95); pH ABG 7.32 (7.35-7.45)
[2019-03-27 20:07] LABS: Allen Test Pos (Pos)
[2019-03-27] MEDS ORDERED: PHARMACY GLYCEMIC MGMT CONSULT PRN (20:26)
[2019-03-27] MEDS ORDERED: GLUCAGON FOR INJ 1 MG VIAL IM PRN (20:45)
[2019-03-27] MEDS ORDERED: DEXTROSE 50% 50 ML SYRINGE IV PRN (20:45)
[2019-03-27] MEDS ORDERED: CARBOHYDRATES FOR HYPOGLYCEMIA PO PRN (20:45)
[2019-03-27] MEDS ORDERED: GLUCOSE 40% GEL 15 GM TUBE PO PRN (20:45)
[2019-03-27] MEDS ORDERED: GLUCOSE 10 TABS/TUBE PO PRN (20:45)
[2019-03-27] MEDS ORDERED: INSULIN GLARGINE SOLOSTAR 100 UNITS/ML 3 ML PEN SC ONE (21:15)
[2019-03-27] MEDS: CLOPIDOGREL BISULFATE 75 MG TAB PO SCH (22:09)
[2019-03-27] MEDS: INSULIN ASPART 100 UNITS/ML 3 ML PEN SC SCH (22:15)
[2019-03-28] MEDS: AMIODARONE / D5W 360 MG/200 ML BAG IV SCH (01:38)
[2019-03-28] MEDS: INSULIN ASPART 100 UNITS/ML 3 ML PEN SC SCH ×6 (01:50→19:34)
[2019-03-28 05:07] LABS: BUN Creatinine Ratio 20.7 (10-20); Calcium 9.2 mg/dl (8.5-10.1); Creatinine Clr Calc Pharmacy 29.4 ml/min; Est GFR (African American) 75.2; Est GFR (Non-African American) 64.8; Potassium 4.2 mmol/L (3.5-5.1)
[2019-03-28] MEDS: METOPROLOL TARTRATE 25 MG TAB PO SCH ×5 (07:47→21:47)
[2019-03-28] MEDS: ATORVASTATIN 40 MG TAB PO SCH (07:47)
[2019-03-28] MEDS: HEPARIN SOD 5,000 UNIT/0.5 ML VIAL SQ SCH ×2 (07:47→19:47)
[2019-03-28] MEDS: ASPIRIN 81 MG ECTAB PO SCH (07:47)
--- NOTE | 2019-03-28 07:54 | Hospitalist Progress Note ---
Date of Service March 28, 2019 Assessment & Plan (1) STEMI (ST elevation myocardial infarction): Presented with chest pain and heart alert called on 03/[address] elevations with anterior ST depressions on admission Initial troponin normal Had emergent cardiac cath done that showed lateral STEMI/acute 100% mid circumflex occlusion. Mild multi-vessel non-culprit coronary artery disease Successful PCI of mid to distal circumflex with 2 overlapping drug-eluting stent Continue DAPT with ASA, Plavix Metoprolol 25 mg TID and Statin Start on low dose ACEI c Parameters (2) Ventricular tachycardia: Still c Frequent NSVT Experienced 2 episodes during heart catheterization of unstable V. tach and required defibrillation. On amiodarone drip (3) Senile dementia: 1 to 1 sitter Stable, Still very confused (4) Tobacco use disorder: Smoking cessation (5) DVT prophylaxis: SCDs On heparin subq CODE STATUS Full Code Disposition Continue monitor in ICU Labs Checked ROS-No Headache, No Visual Changes, No Nausea, No Vomiting, No Fever, No Chills, No Neck Pain or Stiffness, No Chest Pain, No Palpitations, No SOB, No HAILE, No Cough, No Sputum, No Wheezing, No Abdominal Pain, No Diarrhea, No Hematemesis, No Hemoptysis, No Unexpected Weight Loss, No Flank pain, No Melena, No Hematochezia, No Frequency, No Urgency, No Burning, No Hematuria, No Rashes, No Diaphoresis. Appetite is Normal Physical Exam Gen-AAO x 1, Anxious, Demented, Afebrile Head-NCAT, EOMI, PERRLA, Anicteric Sclera, No Posterior Pharyngeal Erythema Neck-Supple, No JVD, No Thyromegaly, No Masses, No LAD, No Bruits Lungs-Clear to Auscultation Bilaterally, No Rales, No Rhonchi, No Wheezing, No Crepitus Chest-No S4, +S1, +S2, No S3, No Murmurs, No Rubs, No Gallops, No Ectopy Abdomen-Soft, Bowel Sounds Present, Non Tender, Non Distended, No Hepatomegaly, No Splenomegaly, No Palpable Masses, No Rebound, No Rigidity, No Guarding Musculoskeletal-Full Range of Motion Bilaterally, No CVAT Extremities-No Cyanosis, No Clubbing, No Edema Nuero-Cranial Nerves II-XII grossly intact, Motor WNL, DTRs WNL, Strength WNL, Non Focal Psych-Anxious Results & Data Vital Signs (Past 12 Hours) Vital Signs Temp Pulse Pulse Resp BP Pulse Ox 03/28/19 06:18 84 10 L 108/69 95 03/28/19 05:17 80 22 111/67 97 03/28/19 04:17 37.1 C 84 15 135/99 96 03/28/19 03:17 79 20 106/76 92 03/28/19 02:19 80 19 129/83 95 03/28/19 02:05 74 24 132/72 96 03/28/19 01:17 76 18 132/72 03/28/19 00:14 71 18 105/67 98 03/28/19 00:06 78 26 H 125/100 03/28/19 00:00 75 03/27/19 23:54 73 12 121/68 99 03/27/19 23:44 72 18 116/79 99 03/27/19 23:34 75 22 101/66 99 03/27/19 23:24 73 18 113/69 99 03/27/19 23:14 72 35 H 105/65 100 03/27/19 23:04 78 19 99/60 L 98 03/27/19 23:00 80 21 97 03/27/19 22:54 75 18 103/63 94 03/27/19 22:44 82 15 104/64 93 03/27/19 22:35 87 13 110/68 92 03/27/19 22:25 80 16 93 03/27/19 22:00 77 14 118/73 94 03/27/19 21:30 85 19 110/69 100 03/27/19 21:00 80 28 H 133/65 98 03/27/19 20:30 83 35 H 121/71 100 03/27/19 20:15 85 18 96 03/27/19 20:00 85 21 154/85 H 97
--- NOTE | 2019-03-28 08:56 | XRay Report ---
XR chest 1V portable CLINICAL HISTORY: Pulmonary edema. Post diuresis film. COMPARISON STUDY: 03/27/2019 FINDINGS: The cardiac and mediastinal contours remain stable. There is resolving interstitial pulmona ry edema. Trace pleural effusions are suspected. There is no focal pulmonary consolidation.[ IMPRESSION: 1. Resolving pulmonary edema 2. Trace pleural effusions 3. No evidence of focal pulmonary consolidation Electronically signed by: Zeeshan Cano M.D. 03/28/2019 8:55 AM
--- NOTE | 2019-03-28 09:30 | Critical Care Progress Note ---
Date of Service March 28, 2019 Assessment & Plan (1) Admitted to intensive care unit: Reason Critically Ill: 88-year-old female appearance looks to the ICU following heart catheterization for ST elevation myocardial infarction with HONEY x2 placed to the mid circumflex Neuro - Senile dementiapatient reportedly is mildly confused at baseline, lives at home with who is also demented. Son is POA currently at home with the patient's . -Per son patient is demented at baseline -We will consult social work and PT OT Cardiac - STEMI Patient had ST elevation in lateral leads, initial troponin negative, now status post heart catheterization with successful placement of HONEY x2 to the mid circumflex artery. Patient had episode of V. tach and bradycardia during heart cath and received defibrillation x2 and atropine, was also placed on levo fed drip but is now weaned off. Given 600 mg clopidogrel bolus post-cath -We will continue to trend troponins until they peak, most recent 79.7 -Follow-up cardiac echo -LFTs within normal limits -A1c is 5.9 -Patient started on ASA, Plavix, atorvastatin -Continuous monitoring on telemetry V. tachpatient experienced 2 episodes during heart catheterization of unstable V. tach and required defibrillation. Was bolused with amiodarone during catheterization placed on amiodarone drip. -She continues to have many PVCs and frequent nonsustained runs of V. tach, likely secondary to reperfusio. -Continue amiodarone infusion per cards -We will maximize electrolytes -Continue monitoring on telemetry -Started on metoprolol tartrate 25 mg p.o. 3 times daily Ectopy on monitor Thought to be secondary to reperfusion injury status post PCI. -Monitor on telemetry Respiratory - History of tobacco abuse, currently maintaining sats on room air, will continue to monitor with continuous oxygen saturation probe GI - Heart healthy diet RENAL/LYTES - Creatinine stable, maximize electrolytes for potassium greater than 4 and mag greater than 2 - Strict I's and O's ENDO - No history DM or thyroid disease ICU hyperglycemic protocol Hemoglobin A1c 5.9 will defer further management to primary care team TSH was initially very low, T4 within normal limits. -Repeat TSH continues to be low however T4 within normal limits? Secondary to stress from cardiac ischemia/reperfusion HEME - H&H stable, monitor routine CBC ID - No indication for infectious process at this time LINES/IV ACCESS - Peripheral IVs DVT PROPHYLAXIS - SCDs, heparin Dispo: ICU Thank you for allowing me to participate in this patient's care. Please see my attending Dr. Mann's attestation for further recommendations. 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 Valentine was the resident-physician during care of patient. I separately evaluated patient for orozco portions of the history and the exam. I was present during the critical portion of medical decision making, and I discussed the case with the resident. I generally agree with the findings and plan except for any additions/exceptions noted. The patient was discussed on multidisciplinary rounds today. Patient is doing better today. She had episode of acute hypoxemic respiratory failure secondary to pulmonary edema yesterday. She received IV Lasix 40mg and BiPAP therapy with improvement of symptoms. She still sounds a bit wet on exam today and we are giving her an additional 20 mg of IV Lasix. We are replacing electrolytes appropriately to maintain potassium above 4 and a magnesium above 2. Her ventricular arrhythmias have improved. We have increased the metoprolol to 4 times daily from 3 times daily. We have switched amiodarone to p.o. from an IV infusion. Continue aspirin and Plavix given her STEMI in the RCA. I think she is stable to transfer to the floor at this point. Subjective 88-year-old female sitting up in bed pleasantly confused in no acute distress. Overnight she had an issue of hypoxemia chest x-ray obtained was consistent with fluid overload. She required Lasix and BiPAP, was subsequently weaned overnight and is now tolerating room air. Patient is done well throughout the day. Still having frequent ectopy on the monitor likely secondary to reperfusion injury. Otherwise patient is tolerating her diet, voiding, stooling, sleeping. No acute concerns at present, all questions answered. Results & Data Vital Signs (Past 12 Hours) Vital Signs Temp Pulse Resp BP Pulse Ox 03/28/19 06:18 84 10 L 108/69 95 03/28/19 05:17 80 22 111/67 97 03/28/19 04:17 37.1 C 84 15 135/99 96 03/28/19 03:17 79 20 106/76 92 03/28/19 02:19 80 19 129/83 95 12/11/19 02:05 74 24 132/72 96 03/28/19 01:17 76 18 132/72 03/28/19 00:14 71 18 105/67 98 03/28/19 00:06 78 26 H 125/100 03/28/19 00:00 75 03/27/19 23:54 73 12 121/68 99 03/27/19 23:44 72 18 116/79 99 03/27/19 23:34 75 22 101/66 99 03/27/19 23:24 73 18 113/69 99 03/27/19 23:14 72 35 H 105/65 100 03/27/19 23:04 78 19 99/60 L 98 03/27/19 23:00 80 21 97 03/27/19 22:54 75 18 103/63 94 03/27/19 22:44 82 15 104/64 93 03/27/19 22:35 87 13 110/68 92 03/27/19 22:25 80 16 93 03/27/19 22:00 77 14 118/73 94 03/27/19 21:30 85 19 110/69 100 Laboratory Results 03/28/19 03/28/19 03/28/19 Range/Units 11:04 07:21 04:28 ABG pH (7.35-7.45) ABG pCO2 (35-46) mmHg ABG pO2 (80-95) mm/Hg ABG HCO3 (19-24) mmol/L ABG O2 Saturation (90-95) % ABG Base Excess (-9-1.8) mEq/L Neil Test (Pos) Barometric Pressure mm/Hg Oxygen Given Sodium (136-145) mmol/L Potassium (3.5-5.1) mmol/L Chloride (98-107) mmol/L Carbon Dioxide (21-32) mmol/L Anion Gap (3-11) BUN (7-18) mg/dl Creatinine (0.6-1.2) mg/dl Est Cr Clr Drug Dosing ml/min Est GFR ( Amer) Est GFR (Non-Af Amer) BUN/Creatinine Ratio (10-20) Glucose (70-99) mg/dl POC Glucose 148 H 98 95 (70-99) Calcium (8.5-10.1) mg/dl Magnesium (1.8-2.4) mg/dl Troponin I (0-0.045) ng/ml 03/28/19 03/28/19 03/27/19 Range/Units 04:23 04:23 23:58 ABG pH (7.35-7.45) ABG pCO2 (35-46) mmHg ABG pO2 (80-95) mm/Hg ABG HCO3 (19-24) mmol/L ABG O2 Saturation (90-95) % ABG Base Excess (-9-1.8) mEq/L Neil Test (Pos) Barometric Pressure mm/Hg Oxygen Given Sodium 141 (136-145) mmol/L Potassium 4.2 (3.5-5.1) mmol/L Chloride 107 (98-107) mmol/L Carbon Dioxide 30 (21-32) mmol/L Anion Gap 4.0 (3-11) BUN 17 (7-18) mg/dl Creatinine 0.81 (0.6-1.2) mg/dl Est Cr Clr Drug Dosing 29.4 ml/min Est GFR ( Amer) 75.2 Est GFR (Non-Af Amer) 64.8 BUN/Creatinine Ratio 20.7 H (10-20) Glucose 98 (70-99) mg/dl POC Glucose 113 H (70-99) Calcium 9.2 (8.5-10.1) mg/dl Magnesium 1.9 (1.8-2.4) mg/dl Troponin I (0-0.045) ng/ml 03/27/19 03/27/19 03/27/19 Range/Units 22:13 21:15 19:37 ABG pH 7.32 L (7.35-7.45) ABG pCO2 50 H (35-46) mmHg ABG pO2 66 L (80-95) mm/Hg ABG HCO3 25 H (19-24) mmol/L ABG O2 Saturation 92.0 (90-95) % ABG Base Excess -1.8 (-9-1.8) mEq/L Neil Test Pos (Pos) Barometric Pressure 734.6 mm/Hg Oxygen Given 11 LITERS Sodium (136-145) mmol/L Potassium (3.5-5.1) mmol/L Chloride (98-107) mmol/L Carbon Dioxide (21-32) mmol/L Anion Gap (3-11) BUN (7-18) mg/dl Creatinine (0.6-1.2) mg/dl Est Cr Clr Drug Dosing ml/min Est GFR ( Amer) Est GFR (Non-Af Amer) BUN/Creatinine Ratio (10-20) Glucose (70-99) mg/dl POC Glucose 130 H (70-99) Calcium (8.5-10.1) mg/dl Magnesium (1.8-2.4) mg/dl Troponin I 49.100 H* (0-0.045) ng/ml 03/27/19 03/27/19 03/27/19 Range/Units 19:37 19:37 17:52 ABG pH (7.35-7.45) ABG pCO2 (35-46) mmHg ABG pO2 (80-95) mm/Hg ABG HCO3 (19-24) mmol/L ABG O2 Saturation (90-95) % ABG Base Excess (-9-1.8) mEq/L Neil Test (Pos) Barometric Pressure mm/Hg Oxygen Given Sodium 139 (136-145) mmol/L Potassium 4.7 (3.5-5.1) mmol/L Chloride 110 H (98-107) mmol/L Carbon Dioxide 25 (21-32) mmol/L Anion Gap 5.0 (3-11) BUN 21 H (7-18) mg/dl Creatinine 0.83 (0.6-1.2) mg/dl Est Cr Clr Drug Dosing 28.7 ml/min Est GFR ( Amer) 73.0 Est GFR (Non-Af Amer) 63.0 BUN/Creatinine Ratio 25.4 H (10-20) Glucose 175 H (70-99) mg/dl POC Glucose 185 H (70-99) Calcium 9.3 (8.5-10.1) mg/dl Magnesium 2.1 (1.8-2.4) mg/dl Troponin I 61.600 H* (0-0.045) ng/ml 03/27/19 Range/Units 15:14 ABG pH (7.35-7.45) ABG pCO2 (35-46) mmHg ABG pO2 (80-95) mm/Hg ABG HCO3 (19-24) mmol/L ABG O2 Saturation (90-95) % ABG Base Excess (-9-1.8) mEq/L Neil Test (Pos) Barometric Pressure mm/Hg Oxygen Given Sodium (136-145) mmol/L Potassium (3.5-5.1) mmol/L Chloride (98-107) mmol/L Carbon Dioxide (21-32) mmol/L Anion Gap (3-11) BUN (7-18) mg/dl Creatinine (0.6-1.2) mg/dl Est Cr Clr Drug Dosing ml/min Est GFR ( Amer) Est GFR (Non-Af Amer) BUN/Creatinine Ratio (10-20) Glucose (70-99) mg/dl POC Glucose (70-99) Calcium (8.5-10.1) mg/dl Magnesium (1.8-2.4) mg/dl Troponin I 70.100 H* (0-0.045) ng/ml Medications Administered Current Inpatient Medications Acetaminophen (Tylenol) 650 mg PO Q4H PRN PRN Reason: Mild Pain (scale 1-3) Stop: 04/25/19 21:24 Last Admin: 03/28/19 11:00 Dose: 650 mg Documented by: [facility] ([facility]) [facility] Stop: 04/27/19 11:59 Aspirin (Ecotrin Ectab) 81 mg PO [facility] Stop: 04/26/19 08:59 Last Admin: 03/28/19 07:47 Dose: 81 mg Documented by: Atorvastatin Calcium (Lipitor) 40 mg PO [facility] Stop: 04/26/19 08:59 Last Admin: 03/28/19 07:47 Dose: 40 mg Documented by: Clopidogrel Bisulfate (Plavix) 75 mg PO DAILY@2100 [facility] Stop: 04/26/19 20:59 Last Admin: 03/27/19 22:09 Dose: 75 mg Documented by: Dextrose (Dextrose 50%) 25 - 50 ml IV UD PRN; Protocol PRN Reason: Hypoglycemia Protocol Stop: 04/26/19 20:44 Glucagon (Glucagen) 1 mg IM UD PRN; Protocol PRN Reason: Hypoglycemia Protocol Stop: 04/26/19 20:44 Glucose (Glucose 40%) 15 - 30 gm PO UD PRN; Protocol PRN Reason: Hypoglycemia Protocol Stop: 04/26/19 20:44 Glucose (Dex4 Glucose) 4 - 8 tabs PO UD PRN; Protocol PRN Reason: Hypoglycemia Protocol Stop: 04/26/19 20:44 Heparin Sodium (Porcine) (Heparin Sodium (Porcine)) 5,000 units SQ Q12 [facility] Stop: 04/26/19 08:59 Last Admin: 03/28/19 07:47 Dose: 5,000 units Documented by: Promethazine HCl 12.5 mg/ (Sodium Chloride) 50.5 mls @ 202 mls/hr IV Q6H PRN PRN Reason: Nausea And Vomiting Stop: 04/26/19 19:24 [facility]ulin Aspart [facility]olog Flexpen) [facility] Protocol Stop: 04/26/19 20:59 Last Admin: 03/28/19 12:22 Dose: Not Given Documented by: Lisinopril (Zestril) 2.5 mg PO QAM [facility] Stop: 04/27/19 10:59 Last Admin: 03/28/19 10:39 Dose: 2.5 mg Documented by: Metoprolol Tartrate (Lopressor) 25 mg PO QID [facility] Stop: 04/27/19 12:59 Last Admin: 03/28/19 13:23 Dose: 25 mg Documented by: Miscellaneous (Carbohydrates For Hypoglycemia) 15 - 30 gm PO UD PRN PRN Reason: Hypoglycemia Treatment Stop: 04/26/19 20:44 Miscellaneous Information (Consult Glycemic Management Pharmacy) 1 ea N/A UD PRN PRN Reason: Consult Stop: 04/26/19 20:25 Last Admin: 03/27/19 20:26 Dose: 1 ea Documented by: Nitroglycerin (Nitrostat) 0.4 mg SL PRN PRN PRN Reason: Chest Pain Stop: 04/25/19 21:24 Tramadol HCl (Ultram) 25 - 50 mg PO Q4H PRN PRN Reason: Pain Stop: 04/26/19 19:23 Resident Activity Tracking Resident Involvement: Resident Care Provided Care Provided: Adult Hospital Medicine (ICU) (1) Chest pain Chest pain type: unspecified Qualified Code(s): R07.9 - Chest pain, unspecified
[2019-03-28] MEDS ORDERED: AMIODARONE 200 MG TAB PO ONE (10:15)
[2019-03-28] MEDS: MAGNESIUM SULFATE / D5W 1 GM/100 ML BAG IV SCH ×2 (10:43→10:47)
[2019-03-28] MEDS ORDERED: FUROSEMIDE 40 MG/4 ML VIAL IV ONE (11:00)
--- NOTE | 2019-03-28 11:52 | Billing Data ---
Coding Level of Care Code 08053 Subseq Hosp Care Lvl 3
[2019-03-28] MEDS ORDERED: AMIODARONE 200 MG TAB PO SCH ×2 (12:00→14:00)
--- NOTE | 2019-03-28 12:45 | Pharmacy Report ---
Pharmacy Glycemic Short Note 2 - Date of Service March 28, 2019 - Glycemic Short BSG Results (Last 24 hours): 03/27/19 03/27/19 03/27/19 12:16 17:52 19:37 Glucose 175 H POC Glucose 173 H 185 H 03/27/19 03/27/19 03/28/19 22:13 23:58 04:23 Glucose 98 POC Glucose 130 H 113 H 03/28/19 03/28/19 03/28/19 04:28 07:21 11:04 Glucose POC Glucose 95 98 148 H OUTPATIENT ANTIDIABETIC REGIMEN: * No prior dx of DM * A1c = 5.9% 03/27/19 ASSESSMENT: * Patient admitted to ICU for STEMI, s/p HONEY x 2 and episode of unstable VT * A1c drawn this admission consistent with "pre-diabetes" * Pharm consulted for glycemic management due to BSGs > 140 x 2 * Maximum BSG in last 24 hrs without insulin tx = 185 * Pt did receive 1 dose of Lantus last evening x 1 (9 units) and fasting BSGs in the 90's this AM - will not continue basal insulin at this time but will monitor FBS * Will adjust Novolog orders, new regimen will be based upon weight and "moderate" stress level PLAN FOR INPATIENT GLYCEMIC CONTROL: * Basal insulin * none at this time - will monitor * Bolus insulin * NovoLog per scale ACHS or Q6hrs while NPO * Goal Range: Low 110 mg/dL - High 140 mg/dL * Correction Factor: 50 mg/dL/unit * Nutritional / Prandial insulin per carb ratio of 1 unit per 17 grams CHO consumed PLAN FOR DISCHARGE: * Give patient's age and A1c results, would not initiate treatment for DM on discharge
--- NOTE | 2019-03-28 15:07 | Cardiology Progress Note ---
Date of Service March 28, 2019 Assessment & Plan (1) ST elevation (STEMI) myocardial infarction: --post PCI with 2 HONEY to circumflex 2. Ischemic cardiomyopathy - EF 40-45% with inferolateral wma 3. Frequent NSVT 4. Mild MR 5. Dementia Chest pain free. Hemodynamically stable. Well-perfused, no significant congestion Mental status at described baseline Frequent ventricular ectopy persists -- Continue DAPT with ASA, clopidogrel -- Increase beta-kathy - metoprolol 37.5 mg QID - uptitrate as BP allows -- Now on PO amio 200mg TID. Supplement electrolytes as necessary. -- continue statin -- Continue current [facility] medicine and ICU team care. Subjective Confused but seems like baseline. No chest pain or shortness of breath. Received IV lasix overnight x 1. Frequent NSVT on telemetry, worse in the AM. Review of Systems Review of Systems: All systems reviewed & are unremarkable except as noted in HPI & below Physical Exam Physical Exam: General: resting comfortably Eyes: Sclerae anicteric, extraocular movements intact HENT: Oropharynx clear mucous membranes moist Lungs: Clear to auscultation bilaterally Cardiac: Regular rate and rhythm, 2/6 holosystolic murmur Abdomen: Soft, nontender, nondistended, positive bowel sounds. Psych: Alert only to person Extremities/Vascular: -- 2+ radial bilaterally -- No edema Results & Data Vital Signs (Past 12 Hours) Vital Signs Temp Pulse Resp BP Pulse Ox 03/28/19 08:00 83 03/28/19 06:18 84 10 L 108/69 95 03/28/19 05:17 80 22 111/67 97 03/28/19 04:17 98.8 F 84 15 135/99 96 03/28/19 03:17 79 20 106/76 92 PG Care Time/CCT Total # of Minutes Spent Total Time Spent with Patient: Total time spent is greater than 50% in coordination of care (as documented) at patient's floor/unit and/or counseling patient: (1) ST elevation (STEMI) myocardial infarction Involved coronary artery: unspecified coronary artery Qualified Code(s): I21.3 - ST elevation (STEMI) myocardial infarction of unspecified site
[2019-03-28] MEDS: CLOPIDOGREL BISULFATE 75 MG TAB PO SCH (19:47)
[2019-03-28] MEDS ORDERED: SODIUM CHLORIDE 0.9% 500 ML IV SCH (22:00)
[2019-03-28 22:12] LABS: BUN Creatinine Ratio 30.9 (10-20); Calcium 9.6 mg/dl (8.5-10.1); Creatinine Clr Calc Pharmacy 27.1 ml/min; Est GFR (Non-African American) 58.7; Magnesium 2.3 mg/dl (1.8-2.4); Potassium 3.8 mmol/L (3.5-5.1)
[2019-03-28] MEDS: POTASSIUM CHLORIDE / WTR 10 MEQ/100 ML PLCT IV SCH ×2 (22:26→23:37)
[2019-03-29 06:51] LABS: Hematocrit (blood only) 44.3 % (37-47); Mean Corpuscular Hemoglobin 30.1 pg (25-34); Mean Corpuscular Hgb Conc 33.9 g/dL (32-36); Mean Corpuscular Volume 88.8 fL (80-100); Mean Platelet Volume 11.6 fL (7.4-10.4); Platelet Count 217 K/uL (130-400); RDW Coefficient of Variation 13.4 % (11.5-14.5); RDW Standard Deviation 43.5 fL (36.4-46.3); Red Blood Count 4.99 M/uL (4.2-5.4); White Blood Count 7.33 K/uL (4.8-10.8)
[2019-03-29 07:00] LABS: INR 1.1 (0.9-1.1); Prothrombin Time 10.9 Seconds (9.0-12.0)
[2019-03-29 07:21] LABS: Albumin Level 3.1 gm/dl (3.4-5.0); BUN Creatinine Ratio 33.5 (10-20); Creatinine Clr Calc Pharmacy 27.1 ml/min; Est GFR (Non-African American) 58.7
[2019-03-29 07:24] LABS: Bilirubin,Total 0.9 mg/dl (0.2-1); Total Protein 6.1 gm/dl (6.4-8.2)
[2019-03-29] MEDS: ATORVASTATIN 40 MG TAB PO SCH (08:01)
[2019-03-29] MEDS: ASPIRIN 81 MG ECTAB PO SCH (08:01)
[2019-03-29] MEDS: HEPARIN SOD 5,000 UNIT/0.5 ML VIAL SQ SCH ×2 (08:02→21:22)
[2019-03-29] MEDS: METOPROLOL TARTRATE 25 MG TAB PO SCH ×4 (08:02→21:23)
[2019-03-29] MEDS: INSULIN ASPART 100 UNITS/ML 3 ML PEN SC SCH ×4 (08:02→21:22)
--- NOTE | 2019-03-29 09:48 | Hospitalist Progress Note ---
Date of Service March 29, 2019 Assessment & Plan (1) STEMI (ST elevation myocardial infarction): Presented with chest pain and heart alert called on 03/[address] elevations with anterior ST depressions on admission Initial troponin normal Had emergent cardiac cath done that showed lateral STEMI/acute 100% mid circumflex occlusion. Mild multi-vessel non-culprit coronary artery disease Successful PCI of mid to distal circumflex with 2 overlapping drug-eluting stent Continue DAPT with ASA, Plavix Metoprolol 37.5 mg QID and Statin Start on low dose ACEI c Parameters if able (2) Ventricular tachycardia: Still c Frequent NSVT Experienced 2 episodes during heart catheterization of unstable V. tach and required defibrillation. On amiodarone 200 mg PO TID (3) Senile dementia: Much better today (4) Tobacco use disorder: Smoking cessation (5) DVT prophylaxis: SCDs On heparin subq CODE STATUS Full Code Disposition DC when OK c Cards PCU Labs Checked ROS-No Headache, No Visual Changes, No Nausea, No Vomiting, No Fever, No Chills, No Neck Pain or Stiffness, No Chest Pain, No Palpitations, No SOB, No HAILE, No Cough, No Sputum, No Wheezing, No Abdominal Pain, No Diarrhea, No Hematemesis, No Hemoptysis, No Unexpected Weight Loss, No Flank pain, No Melena, No Hematochezia, No Frequency, No Urgency, No Burning, No Hematuria, No Rashes, No Diaphoresis. Appetite is Normal Physical Exam Gen-AAO x 2, Demented, Afebrile Head-NCAT, EOMI, PERRLA, Anicteric Sclera, No Posterior Pharyngeal Erythema Neck-Supple, No JVD, No Thyromegaly, No Masses, No LAD, No Bruits Lungs-Clear to Auscultation Bilaterally, No Rales, No Rhonchi, No Wheezing, No Crepitus Chest-No S4, +S1, +S2, No S3, No Murmurs, No Rubs, No Gallops, No Ectopy Abdomen-Soft, Bowel Sounds Present, Non Tender, Non Distended, No Hepatomegaly, No Splenomegaly, No Palpable Masses, No Rebound, No Rigidity, No Guarding Musculoskeletal-Full Range of Motion Bilaterally, No CVAT Extremities-No Cyanosis, No Clubbing, No Edema Nuero-Cranial Nerves II-XII grossly intact, Motor WNL, DTRs WNL, Strength WNL, Non Focal Psych-Pleasant Results & Data Vital Signs (Past 12 Hours) Vital Signs Temp Pulse Resp BP BP Pulse Ox 03/29/19 07:05 36.5 C 64 17 112/57 L 97 03/29/19 03:14 36.5 C 65 18 107/85 97 03/28/19 23:16 36.7 C 79 19 103/63 98 03/28/19 21:50 89/53 L
[2019-03-29] MEDS: AMIODARONE 200 MG TAB PO SCH ×2 (11:07→16:59)
--- NOTE | 2019-03-29 12:15 | Pharmacy Report ---
Pharmacy Glycemic Short Note 2 - Date of Service March 29, 2019 - Glycemic Short BSG Results (Last 24 hours): 03/28/19 03/28/19 03/28/19 16:38 19:33 21:46 Glucose 111 H POC Glucose 97 115 H 03/29/19 03/29/19 06:06 07:25 Glucose 83 POC Glucose 82 OUTPATIENT ANTIDIABETIC REGIMEN: * No prior dx of DM * A1c = 5.9% 03/27/19 ASSESSMENT: 03/29 * BSGs at goal over last 24 hrs and only 3 units of Novolog given w/ breakfast * Fasting BSG at goal with no basal insulin on board * Given current BSG pattern, may lessen current Novolog doses. I suspect we may be able to d/c SQ insulin orders in the near future if BSGs do not climb unexpectedly 03/28 * Patient admitted to ICU for STEMI, s/p HONEY x 2 and episode of unstable VT * A1c drawn this admission consistent with "pre-diabetes" * Pharm consulted for glycemic management due to BSGs > 140 x 2 * Maximum BSG in last 24 hrs without insulin tx = 185 * Pt did receive 1 dose of Lantus last evening x 1 (9 units) and fasting BSGs in the 90's this AM - will not continue basal insulin at this time but will monitor FBS * Will adjust Novolog orders, new regimen will be based upon weight and "moderate" stress level PLAN FOR INPATIENT GLYCEMIC CONTROL: * Basal insulin * none at this time - will monitor * Bolus insulin * NovoLog per scale ACHS or Q6hrs while NPO * Goal Range: Low 110 mg/dL - High 160 mg/dL * Correction Factor: 50 mg/dL/unit * Nutritional / Prandial insulin per carb ratio of 1 unit per 20 grams CHO consumed PLAN FOR DISCHARGE: * Give patient's age and A1c results, would not initiate treatment for DM on discharge
[2019-03-29] MEDS: CLOPIDOGREL BISULFATE 75 MG TAB PO SCH (21:23)
[2019-03-30 06:32] LABS: Hematocrit (blood only) 41.9 % (37-47); Hemoglobin 14.4 g/dL (12.0-16.0); Mean Corpuscular Hemoglobin 30.1 pg (25-34); Mean Corpuscular Hgb Conc 34.4 g/dL (32-36); Mean Corpuscular Volume 87.7 fL (80-100); Mean Platelet Volume 11.7 fL (7.4-10.4); Platelet Count 181 K/uL (130-400); RDW Coefficient of Variation 13.1 % (11.5-14.5); RDW Standard Deviation 42.3 fL (36.4-46.3); Red Blood Count 4.78 M/uL (4.2-5.4); White Blood Count 6.43 K/uL (4.8-10.8)
[2019-03-30 07:02] LABS: Calcium 8.8 mg/dl (8.5-10.1); Creatinine Clr Calc Pharmacy 32.2 ml/min; Est GFR (African American) 83.8; Est GFR (Non-African American) 72.3; Potassium 3.5 mmol/L (3.5-5.1)
[2019-03-30] MEDS: HEPARIN SOD 5,000 UNIT/0.5 ML VIAL SQ SCH ×2 (08:10→21:01)
[2019-03-30] MEDS: AMIODARONE 200 MG TAB PO SCH ×2 (08:11→21:01)
[2019-03-30] MEDS: ATORVASTATIN 40 MG TAB PO SCH (08:11)
[2019-03-30] MEDS: METOPROLOL TARTRATE 25 MG TAB PO SCH (08:11)
[2019-03-30] MEDS: INSULIN ASPART 100 UNITS/ML 3 ML PEN SC SCH ×4 (08:12→20:17)
[2019-03-30] MEDS: ASPIRIN 81 MG ECTAB PO SCH (08:24)
--- NOTE | 2019-03-30 08:53 | Cardiology Progress Note ---
Date of Service March 30, 2019 Assessment & Plan (1) ST elevation (STEMI) myocardial infarction: --post PCI with 2 HONEY to circumflex 2. Ischemic cardiomyopathy - EF 40-45% with inferolateral wma 3. Frequent NSVT 4. Mild MR 5. Dementia Chest pain free. Hemodynamically stable. Well-perfused, no significant congestion Improved ventricular ectopy -- Transition metoprolol to toprol xl 100mg daily -- Reduce amiodarone to 200mg twice daily -- Continue DAPT with ASA, clopidogrel -- continue statin -- Restart low dose WEST as bp allows From a cardiac standpoint OK for discharge when other medical issues resolved. Follow-up with me in 2 weeks. Subjective In good spirits. No chest pain. No shortness of breath. "feels like i need to cough something up." Review of Systems Review of Systems: All systems reviewed & are unremarkable except as noted in HPI & below Physical Exam Physical Exam: General: Comfortable, no acute distress Eyes: Sclerae anicteric HENT: Oropharynx clear mucous membranes moist Neck: No JVD. Lungs: Clear to auscultation bilaterally Cardiac: Regular rate and rhythm, holosystolic 1/6 at apex Abdomen: Soft, nontender, nondistended, positive bowel sounds. Neuro: Nonfocal Psych: Alert orient x3, normal affect and mood Extremities/Vascular: -- 2+ radial bilaterally -- No edema Results & Data Vital Signs (Past 12 Hours) Vital Signs Temp Pulse Resp BP BP Pulse Ox 03/30/19 07:06 98.4 F 69 18 133/72 96 03/30/19 02:59 98.6 F 65 16 127/75 96 03/29/19 23:08 97.5 F L 60 17 122/69 97 PG Care Time/CCT Total # of Minutes Spent Total Time Spent with Patient: Total time spent is greater than 50% in coordination of care (as documented) at patient's floor/unit and/or counseling patient: (1) ST elevation (STEMI) myocardial infarction Involved coronary artery: unspecified coronary artery Qualified Code(s): I21.3 - ST elevation (STEMI) myocardial infarction of unspecified site
--- NOTE | 2019-03-30 10:53 | Discharge Summary ---
Date of Service March 30, 2019 Admission HPI Per Admitting Provider The patient is an 88-year-old female here with acute chest pain and evidence of acute HI on EKG. A heart alert was activated and she was taken to cath where she was found to have an occluded mid circumflex and received 2 stents. She became intermittently hypotensive and is now on norepinephrine and in the ICU for monitoring. During catheterization she also revealed went into unstable V. tach and required 2 shocks to return to sinus rhythm. She was loaded with Plavix and placed in the ICU for recovery and further monitoring. She has no prior history of cardiac disease per records. Cardiac risk factors include hypertension and tobacco use. She is unable to give me a history of what happened this evening and is having difficulty with short term memory. She is oriented that she is in the hospital, however, and knows her PCP well. She denies use of a ncotrol inhaler, which was on her medication list, however, not on her recent outpatient list. There is concern for two charts being made on her and I am unable to verify her outpatient medications either with her or her family as she has no listed contacts. There is a recent office note, however, that lists her active medications. Celexa is being held as this was a new medication for her per the notes, which she may not be taking regularly. She is denying chest pain, shortness of breath or other symptoms at this time. Admission Exam Per Admitting Provider CONSTITUTIONAL: WNWD, vitals as above, generally well-appearing EYES: pupils are equal bilaterally, normal conjunctivae, no scleral icterus ENT: external ear and nose normal, MMM RESPIRATORY: clear to auscultation bilaterally, no crackles, rales or wheezes, normal respiratory effort CARDIOVASCULAR: regular rate and rhythm, S1 and 2 heard without murmurs, gallops or rubs, no JVD, no peripheral edema GASTROINTESTINAL: normal bowel sounds, soft, nontender, nondistended MUSCULOSKELETAL: strength 5/5 throughout, head is normocephalic and atraumatic SKIN: warm and dry NEUROLOGIC: CN 2-12 grossly intact, no sensory deficit, normal cognition, normal speech,difficulty with short-term memory of recent events. Cannot recall medications she is taking. Principal Diagnosis (1) STEMI (ST elevation myocardial infarction): (2) Ventricular tachycardia: (3) Senile dementia: (4) Tobacco use disorder: Discharge Exam Gen-AAO x 2, Demented, Afebrile Head-NCAT, EOMI, PERRLA, Anicteric Sclera, No Posterior Pharyngeal Erythema Neck-Supple, No JVD, No Thyromegaly, No Masses, No LAD, No Bruits Lungs-Clear to Auscultation Bilaterally, No Rales, No Rhonchi, No Wheezing, No Crepitus Chest-No S4, +S1, +S2, No S3, No Murmurs, No Rubs, No Gallops, No Ectopy Abdomen-Soft, Bowel Sounds Present, Non Tender, Non Distended, No Hepatomegaly, No Splenomegaly, No Palpable Masses, No Rebound, No Rigidity, No Guarding Musculoskeletal-Full Range of Motion Bilaterally, No CVAT Extremities-No Cyanosis, No Clubbing, No Edema Nuero-Cranial Nerves II-XII grossly intact, Motor WNL, DTRs WNL, Strength WNL, Non Focal Psych-Pleasant Discharge Data Allergies Allergy/AdvReac Type Severity Reaction Status Date / Time NSAIDS (Non-Steroidal Allergy CROHNS DX Unverified 03/26/19 21:47 Anti-Inflamma Consultations 03/26/19 21:22 Consult Case Management - Discharge Planning Routine Consult Dollyman Routine 03/26/19 21:27 Consult Cardiac Rehabilitation Routine 03/26/19 21:31 Consult Cardiology Routine 03/27/19 07:08 Consult Case Management - Discharge Planning Routine Procedures Performed Operation Date: 03/26/19 20:00 Actual Procedures p Drug Eluting Stent SGl Vessel - Gerardo Jennings MD s Cineradiography w/Routine Exam - Gerardo Jennings MD s Cath, Left with Cors and Vent - Gerardo Jennings MD Ordered Studies 03/26/19 19:59 CL Cath Imgs for PACS use only Stat Current Diagnoses 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) Unspecified dementia without behavioral disturbance (03/26/19) Nicotine dependence, unspecified, uncomplicated (03/26/19) Generalized anxiety disorder (03/26/19) ST elevation (STEMI) myocardial infarction of unspecified site (03/26/19) Ventricular tachycardia (03/26/19) Crohn's disease, unspecified, without complications (03/26/19) Chest pain, unspecified (03/26/19) Encounter for prophylactic measures, unspecified (03/26/19) Other specified health status (03/26/19) Allergies NSAIDS (Non-Steroidal Anti-Inflamma Allergy (Unverified 03/26/19 21:47) CROHNS DX Height/Weight/Isolation Height 4 ft 9.09 in Weight 44.7 kg Chemistry 03/28/19 03/29/19 03/30/19 21:46 06:06 06:10 Sodium 139 143 140 Potassium 3.8 4.0 3.5 Chloride 105 109 H 109 H Carbon Dioxide 25 24 26 Anion Gap 9.0 9.0 5.0 BUN 27 H D 30 H 27 H Creatinine 0.88 0.88 0.74 Glucose 111 H 83 106 H Hospital Course (1) STEMI (ST elevation myocardial infarction): Presented with chest pain and heart alert called on 03/[address] elevations with anterior ST depressions on admission Initial troponin normal Had emergent cardiac cath done that showed lateral STEMI/acute 100% mid circumflex occlusion. Mild multi-vessel non-culprit coronary artery disease Successful PCI of mid to distal circumflex with 2 overlapping drug-eluting stent Continue DAPT with ASA, Plavix Metoprolol 100 mg daily and Statin Start on low dose ACEI (2) Ventricular tachycardia: Still c Frequent NSVT Experienced 2 episodes during heart catheterization of unstable V. tach and required defibrillation. On amiodarone 200 mg PO QD (3) Senile dementia: Much better today (4) Tobacco use disorder: Smoking cessation (5) DVT prophylaxis: CODE STATUS Full Code Disposition DC today, f/u c Dr Jennings in 2 weeks Total Time Total Time Spent Total Time Spent (In Minutes): 45 mins Total Time Includes: Examination of the Patient, Discharge Planning, Medication Reconciliation and Communication With Other Providers Discharge Plan Discharge Items Patient Disposition: Home - Self-Care Reason For Visit: STEMI Discharge Diagnosis: (1) STEMI (ST elevation myocardial infarction): (2) Ventricular tachycardia: (3) Senile dementia: (4) Tobacco use disorder: Activity: Resume your previous activity Lifting: None Bathing: No limitations Sexual Activity: When tolerated Exercise/Sports: None Driving/Machine Use: none Weightbearing: Full weightbearing Non-emergency contact: Primary Care Provider and Channel Opener Call non-emergency contact if: you have any medication questions Follow-up/Referrals: PCP,ELENA [Primary Care Provider] - Gerardo Jennings MD [Physician] - (follow up in 2 weeks) Diet: Heart Healthy Addtl Attending Provider Instructions: None Pending Studies at Discharge: No Stand-Alone Forms: My [facility], Smoking Cessation Medications and DC Order Prescriptions: New atorvastatin 40 mg Tablet 40 mg PO QAM Qty: 30 RF: 0 amiodarone 200 mg Tablet 200 mg PO DAILY Qty: 30 RF: 0 metoprolol succinate 50 mg Tablet Extended Release 24 Hr 100 mg PO DAILY Qty: 30 RF: 0 clopidogrel 75 mg Tablet 75 mg PO DAILY@2100 Qty: 30 RF: 0 nitroglycerin [Nitrostat] 0.4 mg Tablet, Sublingual 0.4 mg sublingual PRN PRN (Reason: chest pain) Qty: 30 RF: 0 aspirin [Ecotrin Low Strength] 81 mg Tablet,Delayed Release (Dr/Ec) 81 mg PO QAM Qty: 100 RF: 0 lisinopril 2.5 mg tablet 2.5 mg PO DAILY Qty: 30 RF: 0 Continued Ergocalciferol (Vitamin D Cap) 50,000 INTERUNIT capsule 50,000 inter.unit PO WK Qty: 0 RF: 0 citalopram 10 mg tablet 10 mg PO DAILY RF: 0 cholecalciferol (vitamin D3) 2,000 unit Tablet 2,000 unit PO DAILY RF: 0 galantamine 16 mg capsule,ext rel. pellets 24 hr 16 mg PO Q24H RF: 0 Discharge Orders: Discharge Order (Routine); Ordered 03/30/19 Ordered By: Donald Carrero Admission Data Admit Date/Time: 03/26/19 21:22 Attending Provider: Donald Carrero Admit Provider: Gerardo Jennings Primary Care Provider: PCP,NO Other Providers: Bandar Llanes ; Gerardo Jennings ; Jatin Wynn [facility] ; [facility]
--- NOTE | 2019-03-30 11:01 | Pharmacy Report ---
Pharmacy Glycemic Short Note 2 - Date of Service March 30, 2019 - Glycemic Short BSG Results (Last 24 hours): 03/29/19 03/29/19 03/29/19 11:31 12:20 16:11 Glucose POC Glucose 136 H 147 H 98 03/29/19 03/30/19 03/30/19 20:52 06:10 07:25 Glucose 106 H POC Glucose 157 H 117 H OUTPATIENT ANTIDIABETIC REGIMEN: * No prior dx of DM * A1c = 5.9% 03/27/19 ASSESSMENT: 03/30 * BSGs again remain at goal and no insulin has been administered in the last 48 hrs. * Will remove prandial insulin coverage. * If BSGs at goal later today, will sign-off on this case. One could consider d/c BSG checks all together if no insulin needed today 03/29 * BSGs at goal over last 24 hrs and only 3 units of Novolog given w/ breakfast * Fasting BSG at goal with no basal insulin on board * Given current BSG pattern, may lessen current Novolog doses. I suspect we may be able to d/c SQ insulin orders in the near future if BSGs do not climb unexpectedly 03/28 * Patient admitted to ICU for STEMI, s/p HONEY x 2 and episode of unstable VT * A1c drawn this admission consistent with "pre-diabetes" * Pharm consulted for glycemic management due to BSGs > 140 x 2 * Maximum BSG in last 24 hrs without insulin tx = 185 * Pt did receive 1 dose of Lantus last evening x 1 (9 units) and fasting BSGs in the 90's this AM - will not continue basal insulin at this time but will monitor FBS * Will adjust Novolog orders, new regimen will be based upon weight and "moderate" stress level PLAN FOR INPATIENT GLYCEMIC CONTROL: * Basal insulin * none at this time - will monitor * Bolus insulin * NovoLog per scale ACHS or Q6hrs while NPO * Goal Range: Low 110 mg/dL - High 160 mg/dL * Correction Factor: 50 mg/dL/unit * Nutritional / Prandial insulin per carb ratio of 1 unit per 20 grams CHO consumed PLAN FOR DISCHARGE: * Give patient's age and A1c results, would not initiate treatment for DM on discharge
[2019-03-30] MEDS: METOPROLOL SUCC 50MG EXT REL TAB PO SCH (12:16)
[2019-03-30] MEDS: CLOPIDOGREL BISULFATE 75 MG TAB PO SCH (21:01)
--- NOTE | 2019-03-31 06:51 | Hospitalist Progress Note ---
Date of Service March 31, 2019 Assessment & Plan (1) STEMI (ST elevation myocardial infarction): Presented with chest pain and heart alert called on 03/[address] elevations with anterior ST depressions on admission Initial troponin normal Had emergent cardiac cath done that showed lateral STEMI/acute 100% mid circumflex occlusion. Mild multi-vessel non-culprit coronary artery disease Successful PCI of mid to distal circumflex with 2 overlapping drug-eluting stent Continue DAPT with ASA, Plavix Metoprolol 100 mg daily and Statin low dose ACEI (2) Ventricular tachycardia: NSVT Experienced 2 episodes during heart catheterization of unstable V. tach and required defibrillation. On amiodarone 200 mg PO QD (3) Senile dementia: Much better today 1:1 sitter today Try for SNF Tuesday (4) Tobacco use disorder: Smoking cessation (5) DVT prophylaxis: CODE STATUS Full Code Disposition SNF Tuesday, f/u c Dr Jennings in 2 weeks Labs checked ROS-No Headache, No Visual Changes, No Nausea, No Vomiting, No Fever, No Chills, No Neck Pain or Stiffness, No Chest Pain, No Palpitations, No SOB, No HAILE, No Cough, No Sputum, No Wheezing, No Abdominal Pain, No Diarrhea, No Hematemesis, No Hemoptysis, No Unexpected Weight Loss, No Flank pain, No Melena, No Hematochezia, No Frequency, No Urgency, No Burning, No Hematuria, No Rashes, No Diaphoresis. Appetite is Normal Physical Exam Gen-AAO x 2, NAD, Afebrile, Confused/Demented Head-NCAT, EOMI, PERRLA, Anicteric Sclera, No Posterior Pharyngeal Erythema Neck-Supple, No JVD, No Thyromegaly, No Masses, No LAD, No Bruits Lungs-Clear to Auscultation Bilaterally, No Rales, No Rhonchi, No Wheezing, No Crepitus Chest-No S4, +S1, +S2, No S3, No Murmurs, No Rubs, No Gallops, No Ectopy Abdomen-Soft, Bowel Sounds Present, Non Tender, Non Distended, No Hepatomegaly, No Splenomegaly, No Palpable Masses, No Rebound, No Rigidity, No Guarding Musculoskeletal-Full Range of Motion Bilaterally, No CVAT Extremities-No Cyanosis, No Clubbing, No Edema Nuero-Cranial Nerves II-XII grossly intact, Motor WNL, DTRs WNL, Strength WNL, Non Focal Psych-Normal Mood Results & Data Vital Signs (Past 12 Hours) Vital Signs Temp Pulse Resp BP Pulse Ox 03/31/19 05:28 36.4 C L 70 16 132/79 93 03/31/19 01:22 36.4 C L 59 L 16 135/73 95 03/30/19 20:22 37.0 C 72 16 123/80 97
[2019-03-31] MEDS: AMIODARONE 200 MG TAB PO SCH ×2 (08:34→20:01)
[2019-03-31] MEDS: ATORVASTATIN 40 MG TAB PO SCH (08:34)
[2019-03-31] MEDS: ASPIRIN 81 MG ECTAB PO SCH (08:34)
[2019-03-31] MEDS: METOPROLOL SUCC 50MG EXT REL TAB PO SCH (08:35)
[2019-03-31] MEDS: HEPARIN SOD 5,000 UNIT/0.5 ML VIAL SQ SCH ×2 (08:35→20:01)
[2019-03-31] MEDS: INSULIN ASPART 100 UNITS/ML 3 ML PEN SC SCH ×4 (08:37→21:07)
--- NOTE | 2019-03-31 09:44 | Pharmacy Report ---
Pharmacy Glycemic Sign Off Nt - Date of Service March 31, 2019 - Assessment & Plan ASSESSMENT: * Pharmacy was consulted by Dr Llanes on 03/26/19 for glycemic control and to write orders per [facility] inpatient glycemic control protocol. * Major changes made by pharmacy to antidiabetic regimen include: * initiate bolus insulin * Patient has been receiving/requiring 0 units of insulin per day for adequate glycemic control * BSGs ranging 95 135 mg/dl * Regimen has only required minor adjustments over the past 48hrs to achieve this level of control * Do not anticipate further changes in patient status that would quickly deteriorate glycemic control (i.e. patient to be NPO for upcoming procedure, steroids tapering, starting tube feedings, etc). * Please see recommendations for outpatient antidiabetic regimen below. PLAN FOR INPATIENT GLYCEMIC CONTROL: No changes needed to current regimen. * Continue NovoLog per scale ACHS/Q6hrs while NPO * Goal range = 110-180 mg/dl * CF = 50 mg/dl/unit * CR = 1 unit for ever 0 g CHO consumed * A1c added to discharge instructions to be communicated to PCP. * Pharmacy is signing off of glycemic consult and will no longer be making adjustments to inpatient regimen. Please feel free to re-consult if needed. Thank you.
[2019-03-31] MEDS: CLOPIDOGREL BISULFATE 75 MG TAB PO SCH (20:01)
--- NOTE | 2019-04-01 06:35 | Hospitalist Progress Note ---
Date of Service April 01, 2019 Assessment & Plan (1) STEMI (ST elevation myocardial infarction): Presented with chest pain and heart alert called on 03/[address] elevations with anterior ST depressions on admission Initial troponin normal Had emergent cardiac cath done that showed lateral STEMI/acute 100% mid circumflex occlusion. Mild multi-vessel non-culprit coronary artery disease Successful PCI of mid to distal circumflex with 2 overlapping drug-eluting stent Continue DAPT with ASA, Plavix Metoprolol 100 mg daily and Statin low dose ACEI (2) Ventricular tachycardia: NSVT Experienced 2 episodes during heart catheterization of unstable V. tach and required defibrillation. Change amiodarone to 200 mg PO QD (3) Senile dementia: Much better today 1:1 sitter today, try to DC sitter today, was ok overnight, butt during the day had issues Try for SNF Tuesday (4) Tobacco use disorder: Smoking cessation (5) DVT prophylaxis: CODE STATUS Full Code Disposition SNF Tuesday, f/u c Dr Jennings in 2 weeks Labs checked ROS-No Headache, No Visual Changes, No Nausea, No Vomiting, No Fever, No Chills, No Neck Pain or Stiffness, No Chest Pain, No Palpitations, No SOB, No HAILE, No Cough, No Sputum, No Wheezing, No Abdominal Pain, No Diarrhea, No Hematemesis, No Hemoptysis, No Unexpected Weight Loss, No Flank pain, No Melena, No Hematochezia, No Frequency, No Urgency, No Burning, No Hematuria, No Rashes, No Diaphoresis. Appetite is Normal Physical Exam Gen-AAO x 2, NAD, Afebrile, Confused/Demented Head-NCAT, EOMI, PERRLA, Anicteric Sclera, No Posterior Pharyngeal Erythema Neck-Supple, No JVD, No Thyromegaly, No Masses, No LAD, No Bruits Lungs-Clear to Auscultation Bilaterally, No Rales, No Rhonchi, No Wheezing, No Crepitus Chest-No S4, +S1, +S2, No S3, No Murmurs, No Rubs, No Gallops, No Ectopy Abdomen-Soft, Bowel Sounds Present, Non Tender, Non Distended, No Hepatomegaly, No Splenomegaly, No Palpable Masses, No Rebound, No Rigidity, No Guarding Musculoskeletal-Full Range of Motion Bilaterally, No CVAT Extremities-No Cyanosis, No Clubbing, No Edema Nuero-Cranial Nerves II-XII grossly intact, Motor WNL, DTRs WNL, Strength WNL, Non Focal Psych-Normal Mood Results & Data Vital Signs (Past 12 Hours) Vital Signs Temp Pulse Pulse Resp BP Pulse Ox 04/01/19 05:00 36.9 C 58 L 18 118/63 93 04/01/19 00:00 64 03/31/19 22:56 37 C 59 L 19 123/59 L 97 03/31/19 19:10 37.0 C 63 18 100/61 94
[2019-04-01 07:17] LABS: Hematocrit (blood only) 42.7 % (37-47); Hemoglobin 14.2 g/dL (12.0-16.0); Mean Corpuscular Hemoglobin 29.6 pg (25-34); Mean Corpuscular Hgb Conc 33.3 g/dL (32-36); Mean Corpuscular Volume 89.1 fL (80-100); Mean Platelet Volume 11.8 fL (7.4-10.4); Platelet Count 202 K/uL (130-400); RDW Coefficient of Variation 13.2 % (11.5-14.5); RDW Standard Deviation 42.9 fL (36.4-46.3); Red Blood Count 4.79 M/uL (4.2-5.4); White Blood Count 6.21 K/uL (4.8-10.8)
[2019-04-01 07:46] LABS: BUN Creatinine Ratio 34.4 (10-20); Creatinine Clr Calc Pharmacy 34.5 ml/min; Est GFR (African American) 90.1; Est GFR (Non-African American) 77.7
[2019-04-01] MEDS: ATORVASTATIN 40 MG TAB PO SCH (07:57)
[2019-04-01] MEDS: AMIODARONE 200 MG TAB PO SCH ×2 (07:57→20:15)
[2019-04-01] MEDS: METOPROLOL SUCC 50MG EXT REL TAB PO SCH (07:57)
[2019-04-01] MEDS: HEPARIN SOD 5,000 UNIT/0.5 ML VIAL SQ SCH ×2 (07:57→20:23)
[2019-04-01] MEDS: INSULIN ASPART 100 UNITS/ML 3 ML PEN SC SCH ×4 (07:58→20:23)
[2019-04-01] MEDS: ASPIRIN 81 MG ECTAB PO SCH (07:58)
[2019-04-01] MEDS: CLOPIDOGREL BISULFATE 75 MG TAB PO SCH (20:15)
--- NOTE | 2019-04-02 06:44 | Discharge Summary ---
Date of Service April 02, 2019 Admission HPI Per Admitting Provider The patient is an 88-year-old female here with acute chest pain and evidence of acute RI on EKG. A heart alert was activated and she was taken to cath where she was found to have an occluded mid circumflex and received 2 stents. She became intermittently hypotensive and is now on norepinephrine and in the ICU for monitoring. During catheterization she also revealed went into unstable V. tach and required 2 shocks to return to sinus rhythm. She was loaded with Plavix and placed in the ICU for recovery and further monitoring. She has no prior history of cardiac disease per records. Cardiac risk factors include hypertension and tobacco use. She is unable to give me a history of what happened this evening and is having difficulty with short term memory. She is oriented that she is in the hospital, however, and knows her PCP well. She denies use of a ncotrol inhaler, which was on her medication list, however, not on her recent outpatient list. There is concern for two charts being made on her and I am unable to verify her outpatient medications either with her or her family as she has no listed contacts. There is a recent office note, however, that lists her active medications. Celexa is being held as this was a new medication for her per the notes, which she may not be taking regularly. She is denying chest pain, shortness of breath or other symptoms at this time. Admission Exam Per Admitting Provider CONSTITUTIONAL: WNWD, vitals as above, generally well-appearing EYES: pupils are equal bilaterally, normal conjunctivae, no scleral icterus ENT: external ear and nose normal, MMM RESPIRATORY: clear to auscultation bilaterally, no crackles, rales or wheezes, normal respiratory effort CARDIOVASCULAR: regular rate and rhythm, S1 and 2 heard without murmurs, gallops or rubs, no JVD, no peripheral edema GASTROINTESTINAL: normal bowel sounds, soft, nontender, nondistended MUSCULOSKELETAL: strength 5/5 throughout, head is normocephalic and atraumatic SKIN: warm and dry NEUROLOGIC: CN 2-12 grossly intact, no sensory deficit, normal cognition, normal speech,difficulty with short-term memory of recent events. Cannot recall medications she is taking. Principal Diagnosis (1) STEMI (ST elevation myocardial infarction): (2) Ventricular tachycardia: (3) Senile dementia: (4) Tobacco use disorder: Discharge Exam Physical Exam Gen-AAO x 2, NAD, Afebrile Demented Head-NCAT, EOMI, PERRLA, Anicteric Sclera, No Posterior Pharyngeal Erythema Neck-Supple, No JVD, No Thyromegaly, No Masses, No LAD, No Bruits Lungs-Clear to Auscultation Bilaterally, No Rales, No Rhonchi, No Wheezing, No Crepitus Chest-No S4, +S1, +S2, No S3, No Murmurs, No Rubs, No Gallops, No Ectopy Abdomen-Soft, Bowel Sounds Present, Non Tender, Non Distended, No Hepatomegaly, No Splenomegaly, No Palpable Masses, No Rebound, No Rigidity, No Guarding Musculoskeletal-Full Range of Motion Bilaterally, No CVAT Extremities-No Cyanosis, No Clubbing, No Edema Nuero-Cranial Nerves II-XII grossly intact, Motor WNL, DTRs WNL, Strength WNL, Non Focal Psych-Cooperative Discharge Data Allergies Allergy/AdvReac Type Severity Reaction Status Date / Time NSAIDS (Non-Steroidal Allergy CROHNS DX Unverified 03/26/19 21:47 Anti-Inflamma Consultations 03/26/19 21:22 Consult Case Management - Discharge Planning Routine Consult Handy Man Routine 03/26/19 21:27 Consult Cardiac Rehabilitation Routine 03/26/19 21:31 Consult Cardiology Routine 03/27/19 07:08 Consult Case Management - Discharge Planning Routine Procedures Performed Operation Date: 03/26/19 20:00 Actual Procedures p Drug Eluting Stent SGl Vessel - Gerardo Jennings MD s Cineradiography w/Routine Exam - Gerardo Jennings MD s Cath, Left with Cors and Vent - Gerardo Jennings MD Current Diagnoses 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) Unspecified dementia without behavioral disturbance (03/26/19) Nicotine dependence, unspecified, uncomplicated (03/26/19) Generalized anxiety disorder (03/26/19) ST elevation (STEMI) myocardial infarction of unspecified site (03/26/19) Ventricular tachycardia (03/26/19) Crohn's disease, unspecified, without complications (03/26/19) Chest pain, unspecified (03/26/19) Encounter for prophylactic measures, unspecified (03/26/19) Other specified health status (03/26/19) Allergies NSAIDS (Non-Steroidal Anti-Inflamma Allergy (Unverified 03/26/19 21:47) CROHNS DX Height/Weight/Isolation Height 4 ft 9.09 in Weight 44.3 kg Chemistry 04/01/19 06:24 Sodium 142 Potassium 4.0 Chloride 109 H Carbon Dioxide 28 Anion Gap 5.0 BUN 24 H Creatinine 0.69 Glucose 97 Ordered Studies 03/26/19 19:59 CL Cath Imgs for PACS use only Stat Hospital Course (1) STEMI (ST elevation myocardial infarction): Presented with chest pain and heart alert called on 03/[address] elevations with anterior ST depressions on admission Initial troponin normal Had emergent cardiac cath done that showed lateral STEMI/acute 100% mid circumflex occlusion. Mild multi-vessel non-culprit coronary artery disease Successful PCI of mid to distal circumflex with 2 overlapping drug-eluting stent Continue DAPT with ASA, Plavix Metoprolol 100 mg daily and Statin low dose ACEI (2) Ventricular tachycardia: NSVT Experienced 2 episodes during heart catheterization of unstable V. tach and required defibrillation. Amiodarone to 200 mg PO QD (3) Senile dementia: Much better today 1:1 sitter today, try to DC to [facility], was up all night last pm Try for SNF today (4) Tobacco use disorder: Smoking cessation (5) DVT prophylaxis: CODE STATUS Full Code Disposition SNF Tuesday, f/u c Dr Jennings in 2 weeks Labs checked ROS-No Headache, No Visual Changes, No Nausea, No Vomiting, No Fever, No Chills, No Neck Pain or Stiffness, No Chest Pain, No Palpitations, No SOB, No HAILE, No Cough, No Sputum, No Wheezing, No Abdominal Pain, No Diarrhea, No Hematemesis, No Hemoptysis, No Unexpected Weight Loss, No Flank pain, No Melena, No Hematochezia, No Frequency, No Urgency, No Burning, No Hematuria, No Rashes, No Diaphoresis. Appetite is Normal Physical Exam Gen-AAO x 2, NAD, Afebrile, Confused/Demented Head-NCAT, EOMI, PERRLA, Anicteric Sclera, No Posterior Pharyngeal Erythema Neck-Supple, No JVD, No Thyromegaly, No Masses, No LAD, No Bruits Lungs-Clear to Auscultation Bilaterally, No Rales, No Rhonchi, No Wheezing, No Crepitus Chest-No S4, +S1, +S2, No S3, No Murmurs, No Rubs, No Gallops, No Ectopy Abdomen-Soft, Bowel Sounds Present, Non Tender, Non Distended, No Hepatomegaly, No Splenomegaly, No Palpable Masses, No Rebound, No Rigidity, No Guarding Musculoskeletal-Full Range of Motion Bilaterally, No CVAT Extremities-No Cyanosis, No Clubbing, No Edema Nuero-Cranial Nerves II-XII grossly intact, Motor WNL, DTRs WNL, Strength WNL, Non Focal Psych-Normal Mood Total Time Total Time Spent Total Time Spent (In Minutes): 60 mins Total Time Includes: Examination of the Patient, Discharge Planning, Medication Reconciliation and Communication With Other Providers Discharge Plan Discharge Items Patient Disposition: Transfer [facility] Reason For Visit: STEMI Discharge Diagnosis: (1) STEMI (ST elevation myocardial infarction): (2) Ventricular tachycardia: (3) Senile dementia: (4) Tobacco use disorder: Condition on Discharge: Good Activity: Resume your previous activity Lifting: None Bathing: No limitations Sexual Activity: When tolerated Exercise/Sports: None Driving/Machine Use: none Weightbearing: Full weightbearing Non-emergency contact: Primary Care Provider and Senior Mobile Web Developer Call non-emergency contact if: you have any medication questions Follow-up/Referrals: Shahnaz Miranda [Other] - 04/03/19 11:20 am (Dr Miranda 04/03 1120 am) Gerardo Jennings MD [Physician] - (follow up in 10 days) PCP,NO [Primary Care Provider] - Diet: Heart Healthy Addtl Attending Provider Instructions: Follow up with Dr Shahnaz Miranda on 04/03 at 1120 Pending Studies at Discharge: No Stand-Alone Forms: [employer] Skilled Items Patient informed of condition?: Yes DNR: No Discharge Level of Care: Skilled Communicable Disease: No Discharge Prognosis: Improving Lines: None Urinary Catheter: No Medications and DC Order Prescriptions: New atorvastatin 40 mg Tablet 40 mg PO QAM Qty: 30 RF: 0 amiodarone 200 mg Tablet 200 mg PO DAILY Qty: 30 RF: 0 metoprolol succinate 50 mg Tablet Extended Release 24 Hr 100 mg PO DAILY Qty: 30 RF: 0 clopidogrel 75 mg Tablet 75 mg PO DAILY@2100 Qty: 30 RF: 0 nitroglycerin [Nitrostat] 0.4 mg Tablet, Sublingual 0.4 mg sublingual PRN PRN (Reason: chest pain) Qty: 30 RF: 0 aspirin [Ecotrin Low Strength] 81 mg Tablet,Delayed Release (Dr/Ec) 81 mg PO QAM Qty: 100 RF: 0 lisinopril 2.5 mg tablet 2.5 mg PO DAILY Qty: 30 RF: 0 Continued Ergocalciferol (Vitamin D Cap) 50,000 INTERUNIT capsule 50,000 inter.unit PO WK Qty: 0 RF: 0 citalopram 10 mg tablet 10 mg PO DAILY RF: 0 cholecalciferol (vitamin D3) 2,000 unit Tablet 2,000 unit PO DAILY RF: 0 galantamine 16 mg capsule,ext rel. pellets 24 hr 16 mg PO Q24H RF: 0 Admission Data Admit Date/Time: 03/26/19 21:22 Attending Provider: Donald Carrero Admit Provider: Gerardo Jennings Primary Care Provider: PCP,NO Other Providers: Bandar Llanes ; Gerardo Jennings ; Jatin Wynn [facility] ; [facility]
[2019-04-02 07:40] LABS: Hematocrit (blood only) 40.4 % (37-47); Hemoglobin 13.6 g/dL (12.0-16.0); Mean Corpuscular Hemoglobin 29.8 pg (25-34); Mean Corpuscular Hgb Conc 33.7 g/dL (32-36); Mean Corpuscular Volume 88.4 fL (80-100); Mean Platelet Volume 11.7 fL (7.4-10.4); Platelet Count 216 K/uL (130-400); RDW Standard Deviation 42.2 fL (36.4-46.3); Red Blood Count 4.57 M/uL (4.2-5.4); White Blood Count 5.37 K/uL (4.8-10.8)
[2019-04-02] MEDS: ASPIRIN 81 MG ECTAB PO SCH (08:06)
[2019-04-02] MEDS: AMIODARONE 200 MG TAB PO SCH ×2 (08:06→22:07)
[2019-04-02] MEDS: METOPROLOL SUCC 50MG EXT REL TAB PO SCH (08:06)
[2019-04-02] MEDS: ATORVASTATIN 40 MG TAB PO SCH (08:06)
[2019-04-02] MEDS: HEPARIN SOD 5,000 UNIT/0.5 ML VIAL SQ SCH ×2 (08:10→22:07)
[2019-04-02] MEDS: INSULIN ASPART 100 UNITS/ML 3 ML PEN SC SCH ×4 (08:10→22:07)
[2019-04-02 08:12] LABS: Calcium 8.6 mg/dl (8.5-10.1); Creatinine Clr Calc Pharmacy 35.5 ml/min; Est GFR (Non-African American) 78.5; Potassium 3.8 mmol/L (3.5-5.1)
[2019-04-02] MEDS: CLOPIDOGREL BISULFATE 75 MG TAB PO SCH (22:07)
[2019-04-03 05:51] LABS: Hematocrit (blood only) 41.7 % (37-47); Hemoglobin 14.2 g/dL (12.0-16.0); Mean Corpuscular Hemoglobin 30.9 pg (25-34); Mean Corpuscular Hgb Conc 34.1 g/dL (32-36); Mean Corpuscular Volume 90.8 fL (80-100); Mean Platelet Volume 11.4 fL (7.4-10.4); Platelet Count 230 K/uL (130-400); RDW Coefficient of Variation 13.3 % (11.5-14.5); RDW Standard Deviation 43.7 fL (36.4-46.3); Red Blood Count 4.59 M/uL (4.2-5.4); White Blood Count 5.28 K/uL (4.8-10.8)
[2019-04-03 06:19] LABS: Calcium 8.4 mg/dl (8.5-10.1); Creatinine Clr Calc Pharmacy 29.8 ml/min; Est GFR (African American) 76.3; Est GFR (Non-African American) 65.8; Potassium 3.9 mmol/L (3.5-5.1)
--- NOTE | 2019-04-03 07:12 | Hospitalist Progress Note ---
Date of Service April 03, 2019 Assessment & Plan (1) STEMI (ST elevation myocardial infarction): Presented with chest pain and heart alert called on 03/[address] elevations with anterior ST depressions on admission Initial troponin normal Had emergent cardiac cath done that showed lateral STEMI/acute 100% mid circumflex occlusion. Mild multi-vessel non-culprit coronary artery disease Successful PCI of mid to distal circumflex with 2 overlapping drug-eluting stent Continue DAPT with ASA, Plavix Metoprolol 100 mg daily and Statin low dose ACEI (2) Ventricular tachycardia: NSVT Experienced 2 episodes during heart catheterization of unstable V. tach and required defibrillation. Amiodarone to 200 mg PO QD (3) Senile dementia: Much better today 1:1 sitter today, try to DC [facility], was up all night last pm Try for SNF today (4) Tobacco use disorder: Smoking cessation (5) DVT prophylaxis: CODE STATUS Full Code Disposition SNF when able, Sitter DCd at midnight 04/03, f/u c Dr Jennings in 7-10 days Sitter is DCd, no VT last night, Transfer to [facility], Amiodarone 200 QD Labs checked ROS-No Headache, No Visual Changes, No Nausea, No Vomiting, No Fever, No Chills, No Neck Pain or Stiffness, No Chest Pain, No Palpitations, No SOB, No HAILE, No Cough, No Sputum, No Wheezing, No Abdominal Pain, No Diarrhea, No Hematemesis, No Hemoptysis, No Unexpected Weight Loss, No Flank pain, No Melena, No Hematochezia, No Frequency, No Urgency, No Burning, No Hematuria, No Rashes, No Diaphoresis. Appetite is Normal Physical Exam Gen-AAO x 2, NAD, Afebrile, Confused/Demented Head-NCAT, EOMI, PERRLA, Anicteric Sclera, No Posterior Pharyngeal Erythema Neck-Supple, No JVD, No Thyromegaly, No Masses, No LAD, No Bruits Lungs-Clear to Auscultation Bilaterally, No Rales, No Rhonchi, No Wheezing, No Crepitus Chest-No S4, +S1, +S2, No S3, No Murmurs, No Rubs, No Gallops, No Ectopy Abdomen-Soft, Bowel Sounds Present, Non Tender, Non Distended, No Hepatomegaly, No Splenomegaly, No Palpable Masses, No Rebound, No Rigidity, No Guarding Musculoskeletal-Full Range of Motion Bilaterally, No CVAT Extremities-No Cyanosis, No Clubbing, No Edema Nuero-Cranial Nerves II-XII grossly intact, Motor WNL, DTRs WNL, Strength WNL, Non Focal Psych-Normal Mood Results & Data Vital Signs (Past 12 Hours) Vital Signs Temp Pulse Pulse Resp BP Pulse Ox 04/03/19 05:23 36.4 C L 57 L 18 131/68 97 04/03/19 00:00 61 04/02/19 23:06 36.4 C L 60 18 127/70 98 04/02/19 20:00 66
[2019-04-03] MEDS: INSULIN ASPART 100 UNITS/ML 3 ML PEN SC SCH ×4 (07:41→20:52)
[2019-04-03] MEDS: HEPARIN SOD 5,000 UNIT/0.5 ML VIAL SQ SCH ×2 (07:42→20:38)
[2019-04-03] MEDS: METOPROLOL SUCC 50MG EXT REL TAB PO SCH (07:42)
[2019-04-03] MEDS: ATORVASTATIN 40 MG TAB PO SCH (07:42)
[2019-04-03] MEDS: AMIODARONE 200 MG TAB PO SCH (13:22)
[2019-04-03] MEDS: CITALOPRAM 20 MG TAB PO SCH (13:22)
[2019-04-03] MEDS: CHOLECALCIFEROL 1,000 UNITS TAB PO SCH (13:22)
[2019-04-03] MEDS: ASPIRIN 81 MG ECTAB PO SCH (13:22)
[2019-04-03] MEDS: GALANTAMINE HYDROBROMIDE 8 MG CAPER PO SCH (17:34)
[2019-04-03] MEDS: CLOPIDOGREL BISULFATE 75 MG TAB PO SCH (20:37)
[2019-04-04 07:18] LABS: Hematocrit (blood only) 40.7 % (37-47); Hemoglobin 13.7 g/dL (12.0-16.0); Mean Corpuscular Hemoglobin 29.8 pg (25-34); Mean Corpuscular Hgb Conc 33.7 g/dL (32-36); Mean Corpuscular Volume 88.7 fL (80-100); Mean Platelet Volume 11.5 fL (7.4-10.4); Platelet Count 232 K/uL (130-400); RDW Coefficient of Variation 13.2 % (11.5-14.5); RDW Standard Deviation 42.2 fL (36.4-46.3); Red Blood Count 4.59 M/uL (4.2-5.4); White Blood Count 5.28 K/uL (4.8-10.8)
[2019-04-04 07:35] LABS: BUN Creatinine Ratio 28.5 (10-20); Calcium 8.7 mg/dl (8.5-10.1); Creatinine Clr Calc Pharmacy 33.5 ml/min; Est GFR (African American) 88.1; Potassium 3.9 mmol/L (3.5-5.1)
[2019-04-04] MEDS: CITALOPRAM 20 MG TAB PO SCH (08:03)
[2019-04-04] MEDS: AMIODARONE 200 MG TAB PO SCH (08:04)
[2019-04-04] MEDS: ATORVASTATIN 40 MG TAB PO SCH (08:04)
[2019-04-04] MEDS: HEPARIN SOD 5,000 UNIT/0.5 ML VIAL SQ SCH ×2 (08:04→20:30)
[2019-04-04] MEDS: ASPIRIN 81 MG ECTAB PO SCH (08:04)
[2019-04-04] MEDS: CHOLECALCIFEROL 1,000 UNITS TAB PO SCH (08:04)
[2019-04-04] MEDS: METOPROLOL SUCC 50MG EXT REL TAB PO SCH (08:04)
[2019-04-04] MEDS: INSULIN ASPART 100 UNITS/ML 3 ML PEN SC SCH ×4 (08:05→20:31)
--- NOTE | 2019-04-04 12:09 | Hospitalist Progress Note ---
Date of Service April 04, 2019 Assessment & Plan (1) STEMI (ST elevation myocardial infarction): (1) STEMI (ST elevation myocardial infarction): Per Dr. Carrero's notes: Presented with chest pain and heart alert called on 03/[address] elevations with anterior ST depressions on admission Had emergent cardiac cath done that showed lateral STEMI/acute 100% mid circumflex occlusion. Mild multi-vessel non-culprit coronary artery disease Successful PCI of mid to distal circumflex with 2 overlapping drug-eluting stent Remained stable overall Continue aspirin plus Plavix Metoprolol and statin Resume lisinopril Awaiting acceptance to retirement facility Follow-up with terrestrial ecologist Dr. Reginald Jennings in 2 weeks (2) Ventricular tachycardia: NSVT per Dr. Carrero's notes: Experienced 2 episodes during heart catheterization of unstable V. tach and required defibrillation. --Continue amiodarone to 200 mg PO QD (3) Senile dementia: --Off one-to-one observation (4) Tobacco use disorder: Smoking cessation (5) DVT prophylaxis: Heparin subcutaneous CODE STATUS Full Code Disposition Awaiting acceptance to retirement facility Subjective Follow-up for ST elevation OK Seen with patient's at the bedside Sitting up in bed, awake, alert, oriented x2, States she feels fine overall No chest pain, shortness of breath, palpitations, dizziness Ambulates with no problems No other symptoms Review of Systems Review of Systems: All systems reviewed & are unremarkable except as noted in HPI & below Physical Exam Physical Exam: General- oriented x 2, not in distress, speaks in sentences with no effort or accessory muscle use Head- atraumatic Eyes- PERRL, EOMI, anicteric ENT- oropharynx clear Neck- supple, no JVD, no adenopathy, no thyromegaly; carotids +2/2, no bruits appreciated Lungs- clear to auscultation bilaterally, no rales/wheezes Heart- normal rate, regular rhythm; no murmur, no gallop, no rub appreciated Abdomen- normal bowel sounds, nondistended, soft, nontender, no masses or hepatosplenomegaly Extremities- no pretibial edema, no calf tenderness; peripheral pulses intact Neuro- alert, oriented x 3; CN 2-12 grossly intact; motor 5/5 bilaterally;sensation 100% on all extremities; no other gross focal neurologic deficits Skin- warm & dry Results & Data Vital Signs (Past 12 Hours) Vital Signs Temp Pulse Resp BP Pulse Ox 04/04/19 07:22 36.5 C 62 16 132/73 93 Laboratory Results Laboratory Results - last 24 hr 04/03/19 04/04/19 04/04/19 20:51 06:47 06:47 WBC 5.28 RBC 4.59 Hgb 13.7 Hct 40.7 MCV 88.7 MCH 29.8 MCHC 33.7 RDW Std Deviation 42.2 RDW Coeff of Mohit 13.2 Plt Count 232 MPV 11.5 H Sodium 142 Potassium 3.9 Chloride 111 H Carbon Dioxide 27 Anion Gap 4.0 BUN 20 H Creatinine 0.71 Est Cr Clr Drug Dosing 33.5 Est GFR ( Amer) 88.1 Est GFR (Non-Af Amer) 76.0 BUN/Creatinine Ratio 28.5 H Glucose 97 POC Glucose 108 H Calcium 8.7 04/04/19 04/04/19 04/04/19 07:23 11:26 16:38 WBC RBC Hgb Hct MCV MCH MCHC RDW Std Deviation RDW Coeff of Mohit Plt Count MPV Sodium Potassium Chloride Carbon Dioxide Anion Gap BUN Creatinine Est Cr Clr Drug Dosing Est GFR ( Amer) Est GFR (Non-Af Amer) BUN/Creatinine Ratio Glucose POC Glucose 104 H 226 H 96 Calcium
[2019-04-04] MEDS: GALANTAMINE HYDROBROMIDE 8 MG CAPER PO SCH (17:42)
[2019-04-04] MEDS: CLOPIDOGREL BISULFATE 75 MG TAB PO SCH (20:29)
[2019-04-05 07:30] VITALS: BP 119/67; PULSE 61; TEMP 98.2; O2SAT 98
[2019-04-05] MEDS: ATORVASTATIN 40 MG TAB PO SCH (07:49)
[2019-04-05] MEDS: CHOLECALCIFEROL 1,000 UNITS TAB PO SCH (07:49)
[2019-04-05] MEDS: CITALOPRAM 20 MG TAB PO SCH (07:49)
[2019-04-05] MEDS: HEPARIN SOD 5,000 UNIT/0.5 ML VIAL SQ SCH (07:50)
[2019-04-05] MEDS: METOPROLOL SUCC 50MG EXT REL TAB PO SCH (07:50)
[2019-04-05] MEDS: INSULIN ASPART 100 UNITS/ML 3 ML PEN SC SCH ×2 (07:51→12:33)
[2019-04-05] MEDS: AMIODARONE 200 MG TAB PO SCH (07:51)
[2019-04-05] MEDS: ASPIRIN 81 MG ECTAB PO SCH (07:51)
--- NOTE | 2019-04-05 13:46 | Hospitalist Progress Note ---
Date of Service April 05, 2019 Assessment & Plan (1) STEMI (ST elevation myocardial infarction): 1) STEMI (ST elevation myocardial infarction): Per Dr. Carrero's notes: Presented with chest pain and heart alert called on 03/[address] elevations with anterior ST depressions on admission Had emergent cardiac cath done that showed lateral STEMI/acute 100% mid circumflex occlusion. Mild multi-vessel non-culprit coronary artery disease Successful PCI of mid to distal circumflex with 2 overlapping drug-eluting stent -- reported left sided chest pain this morning, spontaneously resolved trop 0.2, EKG no signs of acute ischemia -- Continue aspirin plus Plavix, Metoprolol, Lisinopril and statin -- accepted to [facility] Follow-up with clinical technologist Dr. Reginald Jennings in 2 weeks (2) Ventricular tachycardia: NSVT per Dr. Carrero's notes: Experienced 2 episodes during heart catheterization of unstable V. tach and required defibrillation. --Continue amiodarone to 200 mg PO QD (3) Senile dementia: -- Off one-to-one observation (4) Tobacco use disorder: -- Smoking cessation (5) DVT prophylaxis: -- Heparin subcutaneous CODE STATUS Full Code Disposition discharge to [facility] ff up with Dr. Jennings in 1 week ff up with PCP 1 week after discharge from Rehab Subjective ff up for STEMI seen resting in bed, comfortable, not in distress reported left sided chest pain, worsened with inspiration to RN earlier on exam, chest pain free denies dyspnea, palpitations, dizziness, nausea/vomiting no other symptoms Review of Systems Review of Systems: All systems reviewed & are unremarkable except as noted in HPI & below Physical Exam Physical Exam: General- oriented x 1-2, not in distress, speaks in sentences with no effort or accessory muscle use Eyes- anicteric Neck- no JVD Lungs- clear breath sounds bilaterally no crackles or wheezing Heart- normal rate, regular rhythm; no murmurs Abdomen- normal bowel sounds, nondistended, soft, nontender Extremities- no pretibial edema, no calf tenderness Neuro- alert, oriented x 1-2; no new gross focal neurologic deficits Skin- warm & dry Results & Data Vital Signs (Past 12 Hours) Vital Signs Temp Pulse Resp BP Pulse Ox 04/05/19 07:29 36.8 C 61 18 119/67 98 Laboratory Results Laboratory Results - last 24 hr 12/18/19 12/18/19 12/19/19 16:38 20:24 07:42 POC Glucose 96 123 H 104 H Troponin I 04/05/19 08:58 POC Glucose Troponin I 0.234 H*
[2019-04-06] MEDS ORDERED: ERGOCALCIFEROL 50,000 UNITS CAP PO SCH (09:00)
== END 2019-04-05 15:30 | DRG 246 ==
LOC: ED 19:56 → MERGE 20:15 → CC 20:15 → 1E 21:22 → SUATTDRO 21:22 → 2N 03-28 18:08 → 2E 03-28 19:51 → 2N 04-03 09:08 → UNDODISIN 04-05 15:30